=== PATIENT | male | born 1955 | race Caucasian/White ===

== ENCOUNTER → 2016-09-13 | Outpatient (CLI) | payer OTHER, MEDICARE ==
[~2016-09-13] MED LIST: CHOL20009 PO; DICY10CA12 PO; LYR50 PO; MELO7.5T5 PO; MULT-506 PO; OMEP40CA PO; TRAM-10 PO
[2016-09-13 13:17] LABS: ALT/SGPT 66 U/L (12-78); AST/SGOT 44 U/L (15-37); BLOOD UREA NITROGEN 16 mg/dl (7-18); BUN/CREATININE RATIO 18.5 (10-20); CARBON DIOXIDE 26 mmol/L (21-32); CHLORIDE 103 mmol/L (98-107); CHOLESTEROL 169 mg/dl (0-200); CREATININE 0.86 mg/dl (0.60-1.40); GLUCOSE 317 mg/dl (70-99); SODIUM 137 mmol/L (136-145); TRIGLYCERIDES 317 mg/dl (0-150); VERY LOW DENSITY LIPOPROT CALC 63 mg/dl
[2016-09-13 13:21] LABS: ALKALINE PHOSPHATASE 69 U/L (45-117); CHOLESTEROL/HDL RATIO 5.1; HDL CHOLESTEROL 33 mg/dl; LDL CHOLESTEROL CALCULATED 73 mg/dl
[2016-09-13 13:28] LABS: BETA-HYDROXYBUTYRATE 2.05 mg/dL (0.2-2.81)
[2016-09-13 13:30] LABS: CALCIUM 9.5 mg/dl (8.5-10.1)
== END | disposition home or self-care (01) ==
LOC: C.LABPBG 08:13
PROVIDERS: ATTEND Family Medicine
DX: E78.1 Pure hyperglyceridemia (principal); E55.9 Vitamin D deficiency, unspecified; R53.83 Other fatigue

== ENCOUNTER → 2016-10-20 | Outpatient (CLI) | payer OTHER, MEDICARE ==
[2016-10-20 13:56] LABS: ESTIMATED AVERAGE GLUCOSE 280 mg/dl; HA1C FLAG Normal (Normal)
[2016-10-20 15:04] LABS: BLOOD UREA NITROGEN 13 mg/dl (7-18); BUN/CREATININE RATIO 13.9 (10-20); CARBON DIOXIDE 24 mmol/L (21-32); CHLORIDE 104 mmol/L (98-107); CREATININE 0.92 mg/dl (0.60-1.40); GLUCOSE 355 mg/dl (70-99); POTASSIUM 3.8 mmol/L (3.5-5.1); SODIUM 140 mmol/L (136-145)
[2016-10-20 15:20] LABS: BETA-HYDROXYBUTYRATE 6.46 mg/dL (0.2-2.81); CALCIUM 9.1 mg/dl (8.5-10.1)
== END | disposition home or self-care (01) ==
LOC: C.LABPBG 08:27
PROVIDERS: ATTEND Family Medicine
DX: E11.9 Type 2 diabetes mellitus without complications (principal)

== ENCOUNTER → 2017-05-23 | Outpatient (CLI) | payer OTHER, MEDICARE | END | disposition home or self-care (01) | LOC: C.LABPBG 13:49 | PROVIDERS: ATTEND Family Medicine | DX: M25.50 Pain in unspecified joint (principal); E78.1 Pure hyperglyceridemia ==

== ENCOUNTER → 2017-09-26 | Outpatient (CLI) | payer OTHER, MEDICARE ==
[2017-09-26 14:29] LABS: HEMOGLOBIN A1C 6.4 % (4.5-5.6)
[2017-09-26 14:31] LABS: ALBUMIN 3.6 gm/dl (3.4-5.0); ALT/SGPT 46 U/L (12-78); AST/SGOT 25 U/L (15-37); BLOOD UREA NITROGEN 14 mg/dl (7-18); CALCIUM 8.7 mg/dl (8.5-10.1); CARBON DIOXIDE 27 mmol/L (21-32); CHOLESTEROL 162 mg/dl (0-200); CREATININE 0.76 mg/dl (0.60-1.40); GLUCOSE 105 mg/dl (70-99); POTASSIUM 3.6 mmol/L (3.5-5.1); SODIUM 141 mmol/L (136-145)
[2017-09-26 14:41] LABS: ALKALINE PHOSPHATASE 57 U/L (45-117); LDL CHOLESTEROL CALCULATED 83 mg/dl; TOTAL PROTEIN 7.2 gm/dl (6.4-8.2)
== END | disposition home or self-care (01) ==
LOC: C.LABPBG 08:23
PROVIDERS: ATTEND Family Medicine
DX: E11.9 Type 2 diabetes mellitus without complications (principal); E55.9 Vitamin D deficiency, unspecified

== ENCOUNTER 2022-09-02 06:13 | Inpatient (IN) ==
[2022-09-02] MEDS ORDERED: ONDANSETRON INJ 2 MG/ML 2 ML VIAL IV STA (06:54)
[2022-09-02] MEDS ORDERED: HYDROmorphone INJ 0.5 MG/0.5 ML SYR IV STA ×2 (06:54→17:05)
[2022-09-02] MEDS ORDERED: KETOROLAC TROMETHAMINE 15 MG/ML VIAL IV ONE (06:54)
--- NOTE | 2022-09-02 06:56 | Emergency Department Note ---
Impression & Plan Kidney stone ADMIT ED Provider Note HPI: The patient is a 66-year-old gentleman who presents emergency department with a chief complaint of left flank pain. Patient was seen here last night for the same issue, diagnosed with multiple kidney stones with hydronephrosis on the left side. This is where the patient's pain has persisted after his discharge from the emergency room. Patient states he is very uncomfortable, states he is getting sharp pains in his left flank, states he does have nausea. On arrival here to the ED the patient is in moderate distress secondary to left flank pain, noted to be hypertensive at 190/99, otherwise hemodynamically stable and s aturating well on room air. ROS: - Per HPI *Outpatient medications and allergy history reviewed. *Pertinent external medical records reviewed. PE: General: Alert, obese, moderate distress secondary to pain HEENT: Normocephalic, trachea midline Eyes: Extraocular eye movement is intact, no scleral erythema Pulmonary: Clear to auscultation bilaterally, no wheezing Cardio: Regular rate and rhythm GI: Abdomen is soft to palpation : No suprapubic tenderness, there is left flank tenderness to palpation MSK: No evidence of trauma or malformation of the extremities, no edema Skin: No evidence of rash Neuro: Alert, no focal deficits Psychiatric: Cooperative lunchroom monitor: (As interpreted by myself): - An order was placed for continuous cardiac monitoring - Patient was noted to be in sinus rhythm with a rate of 75 EKG: (As interpreted by myself): Rate: 68 Rhythm: Normal sinus rhythm Intervals: Within normal limits ST changes: No ST elevation Time: 0748 Interventions provided in ED: -IV Dilaudid, IV Zofran, IV Toradol Differential Diagnosis: Obstructing kidney stone, pyelonephritis, urinary tract infection, small bowel obstruction, diverticulitis, amongst other pot ential pathologies. Medical Decision Making: Patient presented to the emergency department with recurrent left flank pain after he was discharged over the evening shift following CT imaging that showed evidence of 2 distal ureteral stones in the left ureter. On arrival here to the ED the patient was in moderate distress secondary to pain, states his pain was too severe at home to manage. IV was established, lab work obtained, patient was maintained on monitoring engineer, patient was given IV Toradol, IV Dilaudid, IV Zofran for his symptoms. This did result in improvement in his symptoms. Lab work shows a leukocytosis but no evidence of renal failure, urinalysis does not show infection. On my reassessment patient states he would like to be admitted for pain control as he did not do well overnight after he was originally discharged from the ED. He states he was using tramadol as needed for pain and this did not result in any relief. Case was discussed with on-call urology midlevel provider, Dang, and the services in agreement for routine consultation which I feel is appropriate. [facility] hospitalist service was consulted for admission and patient was placed for admission in stable condition. Consultants: - Urology, Dr. Steward's service - Hospitalist service, Dr. Chavez Disposition discussion held by myself with: Patient Diagnosis: 1. Kidney stones, left-sided, with intractable pain 2. Leukocytosis, nonspecific Disposition: Admission Noman Daniels DO Emergency Medicine Past Med/Surg History Medical History (Updated 09/02/22 @ 08:20 by Noman Daniels DO) Allergic rhinitis Bursitis of left shoulder Deep vein thrombosis hx of, multiple in legs, no blood thinners Degenerative arthritis of knee, bilateral Degenerative disc disease Depression Diabetes mellitus type 2, uncontrolled, without complications Diastolic heart failure Esophageal dysphagia Fibromyalgia GERD (gastroesophageal reflux disease) Hearing deficit History of deep vein thrombophlebitis of lower extremity Hyperhidrosis Hypertriglyceridemia Hypothyroidism IBS (irritable bowel syndrome) Insomnia Lyme disease LILLIAN (obstructive sleep apnea) Osteoarthritis involving multiple joints on both sides of body Rheumatoid arthritis Syncope T2DM (type 2 diabetes mellitus) Trigger thumb, right thumb Venous insufficiency (chronic) (peripheral) Vitamin D deficiency Surgical History History of appendectomy History of cardiac cath "a long time ago", no stents History of colonoscopy History of tooth extraction History of umbilical hernia repair Family History Aunt Family history of diabetes mellitus Sister Family history of diabetes mellitus Hypertension Mother No problems noted. Other No family history of adverse response to anesthesia Social History Smoking Status: Never smoker Second Hand Exposure: No; Hx Alcohol Use: Yes Alcohol type: beer Alcohol Intake Frequency: Monthly or Less Hx Substance Use: No Preferred Language: Dominican Communication Ability: Effective Visual Impairment: Limited Hearing Ability: Normal Skein Yarn Dyer Helper Required: No Beliefs That Will Affect Care: None marital status: Current Living Situation: Spouse and Family Current Living Situation Comment: Lives with and son current occupational status: retired How many Children do You have: 3 How many Children do You have Comment: children mostly local, family able to assist with care as needed. Feels Safe at Home: Yes Childhood Exposure to Second-Hand Smoke: No Diet Comment: similar to keto during the past year weight has: remained stable Dental Care, Regularly: Yes Physical Activity Frequency: Other Physical Activity Frequency Comment: Limited due to physical condition. Seatbelt Use: always Sunscreen Use: No Assistive Devices: BiPap and Denture - Upper Allergies Allergies Allergy/AdvReac Type Severity Reaction Status Date / Time No Known Allergies Allergy Verified 09/01/22 02:23 Home Meds Home Medications Medication Instructions Recorded Confirmed cholecalciferol (vitamin D3) 50 4,000 units PO DAILY 03/06/20 09/01/22 mcg (2,000 unit) tablet (Vitamin D3) lancets 33 gauge (OneTouch Delica 10/08/20 09/01/22 Lancets) guaifenesin 600 mg tablet, 600 mg PO BID PRN Congestion 05/27/21 09/01/22 extended release 12 hr (Mucinex) levocetirizine 5 mg tablet (Xyzal) 5 mg PO QPM 01/31/22 09/01/22 alpha lipoic acid 200 mg tablet 0 mg PO DAILY 09/01/22 09/01/22 glucosamine sulf dipot 2 cap PO DAILY 09/01/22 09/01/22 chlr,msm,chond 550 mg-C 30 mg-jacques 1 mg capsule (Glucosamine Chondroitin) omega-3 fatty acids 1,000 mg 2,000 mg PO DAILY 09/01/22 09/01/22 capsule tramadol 50 mg tablet 50 - 100 mg PO Q6H PRN Pain 09/01/22 09/01/22 turmeric 400 mg capsule 400 mg PO DAILY 09/01/22 09/01/22 Previous Rx's Medication Instructions Recorded fluticasone propionate 50 1 - 2 spray intranasal HS PRN 11/13/18 mcg/actuation nasal Congestion #16 grams spray,suspension (Flonase Allergy Relief) multivitamin 1 tab PO QAM #30 tabs 11/13/18 BiPap Machine #1 ea 03/18/21 Portable Oxygen #1 ea 05/27/21 hydrocolloid dressing 2" X 2" #100 ea 10/21/21 (Aquacel Extra) miscellaneous medical supply #100 ea 10/21/21 montelukast 10 mg tablet 10 mg PO DAILY #90 tabs 12/20/21 (Singulair) metformin 500 mg tablet 500 mg PO BID #180 tabs 12/22/21 BD Ultra-Fine Mini Pen Needle 31 #200 ea 04/12/22 gauge x 3/16" (pen needle, diabetic) meloxicam 15 mg tablet 15 mg PO QAM #30 tabs 05/09/22 blood sugar diagnostic (OneTouch #300 ea 05/10/22 Verio test strips) duloxetine 60 mg capsule,delayed 60 mg PO QAM #90 caps 06/13/22 release furosemide 40 mg tablet 40 mg PO DAILY #90 tabs 06/13/22 sulfasalazine 500 mg 0.5 g PO BID #180 tabs 06/13/22 tablet,delayed release dicyclomine 10 mg capsule 10 mg PO QID PRN Abdominal Pain 07/18/22 #120 caps metformin 500 mg tablet,extended 500 mg PO DAILY #90 tabs 07/18/22 release 24 hr insulin glargine 100 unit/mL (3 40 unit (0.4 mL) subcut BID #15 mL 08/01/22 mL) subcutaneous pen (Lantus Solostar U-100 Insulin) Results & Data (ED) Vital Signs Vital Signs - 24 hr 09/02/22 06:21 09/02/22 07:26 Temperature 36.4 C L Temperature Source Temporal Artery Scan Pulse Rate 71 64 Respiratory Rate 20 Blood Pressure 190/99 H Blood Pressure Mean 129 Pulse Oximetry 94 Oxygen Delivery Method Room Air Sepsis Recent Fever Within 48 Hours No Sepsis New/Unexplained Change in Mental Status N/A Sepsis Action Taken by Nursing No Action Required Laboratory Data 09/02/22 07:00 09/02/22 07:00 Lab Results 09/02/22 09/02/22 09/02/22 Range/Units 07:00 07:00 07:00 WBC 13.67 H (4.8-10.8) K/ul RBC 5.33 (4.70-6.10) M/uL Hgb 15.8 (14.0-18.0) g/dl Hct 45.5 (42.0-52.0) % MCV 85.4 (80.0-100.0) fL MCH 29.6 (25.0-34.0) pg MCHC 34.7 (32.0-36.0) g/dL RDW Std Deviation 41.6 (36.4-46.3) fL RDW Coeff of Andres 13.4 (11.5-14.5) % Plt Count 163 (130-400) K/uL MPV 9.5 (9.4-12.4) fL Immature Gran % (Auto) 0.4 % Neut % (Auto) 79.5 % Lymph % (Auto) 12.4 % [place] % (Auto) 7.4 % Eos % (Auto) 0.2 % Baso % (Auto) 0.1 % Neut # (Auto) 10.85 H (1.40-6.50) K/uL Lymph # (Auto) 1.70 (1.2-3.4) K/uL [place] # (Auto) 1.01 H (0.11-0.59) K/uL Eos # (Auto) 0.03 (0-0.50) K/uL Baso # (Auto) 0.02 (0-0.2) K/uL Immature Gran # (Auto) 0.06 (0.01-0.20) K/uL Sodium 136 (136-145) mmol/L Potassium 3.9 (3.5-5.1) mmol/L Chloride 103 (98-107) mmol/L Carbon Dioxide 25 (21-32) mmol/L Anion Gap 8 (3-11) BUN 12 (6-23) mg/dl Creatinine 1.15 (0.6-1.4) mg/dl Est Cr Clr Drug Dosing 91.3 ml/min Est GFR ( Amer) 76.4 ml/min Est GFR (Non-Af Amer) 65.9 ml/min BUN/Creatinine Ratio 10.4 (10-20) Glucose 176 H (70-99(Fasting)) mg/dl Calcium 9.4 (8.6-10.3) mg/dl Total Bilirubin 0.6 (0.2-1.0) mg/dl AST 22 (13-39) U/L ALT 23 (7-52) U/L Alkaline Phosphatase 49 (34-104) U/L Total Protein 7.3 (6.0-8.3) gm/dl Albumin 4.0 (3.4-5.0) gm/dl Globulin 3.3 (2.5-4.0) gm/dl Albumin/Globulin Ratio 1.2 (0.9-2) Lipase 19 (11-82) U/L Urine Color Yellow Urine Appearance Clear (Clear) Urine pH 5.5 (4.5-7.5) Ur Specific [place] 1.009 (1.000-1.030) Urine Protein Negative (Negative) Urine Glucose (UA) Negative (Negative) Urine Ketones Trace H (Negative) Urine Blood Negative (Negative) Urine Nitrite Negative (Negative) Urine Bilirubin Negative (Negative) Urine Urobilinogen Negative (Negative) Ur Leukocyte Esterase Negative (Negative) SARS-CoV-2, RNA, NAAT (NEGATIVE) 09/02/22 Range/Units 07:10 WBC (4.8-10.8) K/ul RBC (4.70-6.10) M/uL Hgb (14.0-18.0) g/dl Hct (42.0-52.0) % MCV (80.0-100.0) fL MCH (25.0-34.0) pg MCHC (32.0-36.0) g/dL RDW Std Deviation (36.4-46.3) fL RDW Coeff of Andres (11.5-14.5) % Plt Count (130-400) K/uL MPV (9.4-12.4) fL Immature Gran % (Auto) % Neut % (Auto) % Lymph % (Auto) % [place] % (Auto) % Eos % (Auto) % Baso % (Auto) % Neut # (Auto) (1.40-6.50) K/uL Lymph # (Auto) (1.2-3.4) K/uL [place] # (Auto) (0.11-0.59) K/uL Eos # (Auto) (0-0.50) K/uL Baso # (Auto) (0-0.2) K/uL Immature Gran # (Auto) (0.01-0.20) K/uL Sodium (136-145) mmol/L Potassium (3.5-5.1) mmol/L Chloride (98-107) mmol/L Carbon Dioxide (21-32) mmol/L Anion Gap (3-11) BUN (6-23) mg/dl Creatinine (0.6-1.4) mg/dl Est Cr Clr Drug Dosing ml/min Est GFR ( Amer) ml/min Est GFR (Non-Af Amer) ml/min BUN/Creatinine Ratio (10-20) Glucose (70-99(Fasting)) mg/dl Calcium (8.6-10.3) mg/dl Total Bilirubin (0.2-1.0) mg/dl AST (13-39) U/L ALT (7-52) U/L Alkaline Phosphatase (34-104) U/L Total Protein (6.0-8.3) gm/dl Albumin (3.4-5.0) gm/dl Globulin (2.5-4.0) gm/dl Albumin/Globulin Ratio (0.9-2) Lipase (11-82) U/L Urine Color Urine Appearance (Clear) Urine pH (4.5-7.5) Ur Specific [place] (1.000-1.030) Urine Protein (Negative) Urine Glucose (UA) (Negative) Urine Ketones (Negative) Urine Blood (Negative) Urine Nitrite (Negative) Urine Bilirubin (Negative) Urine Urobilinogen (Negative) Ur Leukocyte Esterase (Negative) SARS-CoV-2, RNA, NAAT NEGATIVE (NEGATIVE) Administered Medications Discontinued Medications Hydromorphone HCl (Hydromorphone Inj 0.5 Mg/0.5 Ml Syr) 0.5 mg IV NOW STA Stop: 09/02/22 06:55 Last Admin: 09/02/22 07:07 Dose: 0.5 mg Documented By: OL Ketorolac Tromethamine (Ketorolac Tromethamine 15 Mg/Ml Vial) 15 mg IV NOW ONE Stop: 09/02/22 06:55 Last Admin: 09/02/22 07:07 Dose: 15 mg Documented By: OL Ondansetron HCl (Ondansetron Inj 2 Mg/Ml 2 Ml Vial) 4 mg IV NOW STA Stop: 09/02/22 06:55 Last Admin: 09/02/22 07:07 Dose: 4 mg Documented By: MIKHAIL Discharge Plan Visit Data Chief Complaint: Kidney Stone Stated Complaint: KIDNEY STONE - PAIN ED Provider: Noman Daniels Discharge Problem: Kidney stone Forms Stand Alone Forms: My [facility] Prescriptions Prescriptions: No Action (DME) BiPap Machine Misc See Rx Instructions .Route Qty: 1 0RF Rx Instructions: BiPAP 14/6, biflex2; oxygen 2L/min (DME) miscellaneous medical supply Pad See Rx Instructions .Route Qty: 100 1RF Rx Instructions: As directed Cosmopor sterile adhesive dressing (DME) Aquacel Extra 2 X 2 " bandage See Rx Instructions .Route Qty: 100 1RF Rx Instructions: As directed montelukast [Singulair] 10 mg tablet 10 mg PO DAILY Qty: 90 3RF metformin 500 mg tablet 500 mg PO BID Qty: 180 5RF Hold Instructions: Home Medication placed on hold at Doctor's office Rx Instructions: ON HOLD (DME) pen needle, diabetic [BD Ultra-Fine Mini Pen Needle] 31 gauge x 3/16" needle See Dose Instructions .ROUTE .MEDSUPPLY Qty: 200 3RF Dose Instruction: As directed Rx Instructions: inject with insulin 2 times daily meloxicam 15 mg tablet 15 mg PO QAM Qty: 30 5RF (DME) OneTouch Verio test strips Strip See Rx Instructions .ROUTE .MEDSUPPLY Qty: 300 1RF Rx Instructions: test blood sugar TID insulin glargine [Lantus Solostar U-100 Insulin] 100 unit/mL (3 mL) insulin pen 40 unit subcut BID Qty: 15 5RF fluticasone propionate [Flonase Allergy Relief] 50 mcg/actuation spray,suspension 1 - 2 spray INTRANASAL HS PRN (Reason: Congestion) Qty: 16 5RF multivitamin tablet 1 tab PO QAM Qty: 30 5RF guaifenesin [Mucinex] 600 mg tablet extended release 12hr 600 mg PO BID PRN (Reason: Congestion) (DME) Portable Oxygen Misc See Rx Instructions .ROUTE .MEDSUPPLY Qty: 1 0RF Rx Instructions: 2L NC w/ activity cholecalciferol (vitamin D3) [Vitamin D3] 50 mcg (2,000 unit) tablet 4,000 units PO DAILY Rx Instructions: gummies sulfasalazine 500 mg tablet,delayed release (DR/EC) 0.5 g PO BID Qty: 180 1RF duloxetine 60 mg capsule,delayed release(DR/EC) 60 mg PO QAM Qty: 90 1RF furosemide 40 mg tablet 40 mg PO DAILY Qty: 90 2RF (DME) lancets [OneTouch Delica Lancets] 33 gauge misc See Rx Instructions .ROUTE .MEDSUPPLY Dose Instruction: As directed Rx Instructions: Testing three times daily. levocetirizine [Xyzal] 5 mg tablet 5 mg PO QPM dicyclomine 10 mg capsule 10 mg PO QID PRN (Reason: Abdominal Pain) Qty: 120 0RF metformin 500 mg tablet extended release 24 hr 500 mg PO DAILY Qty: 90 1RF omega-3 fatty acids 1,000 mg Capsule 2,000 mg PO DAILY alpha lipoic acid 200 mg Tablet 0 mg PO DAILY Rx Instructions: UNSURE OF STRENGTH turmeric 400 mg Capsule 400 mg PO DAILY Glucosamine Chondroitin 550-30-1 mg Capsule 2 cap PO DAILY tramadol 50 mg tablet 50 - 100 mg PO Q6H PRN (Reason: Pain) Referrals Referrals: Jaymie Rutherford DO [Primary Care Provider] -
[2022-09-02 07:20] LABS: Appearance Urine Clear (Clear); Bilirubin Urine Negative (Negative); Blood Urine Negative (Negative); Color Urine Yellow; Glucose Urine UA Negative (Negative); Ketones Urine Trace (Negative); Leukocyte Esterase Urine Negative (Negative); Nitrite Urine Negative (Negative); Protein Urine Negative (Negative); Specific Gravity Urine 1.009 (1.000-1.030); Urobilinogen Urine Negative (Negative); pH Urine 5.5 (4.5-7.5)
[2022-09-02 07:23] LABS: Basophils # (auto) 0.02 K/uL (0-0.2); Basophils % (auto) 0.1 %; Eosinophils # (auto) 0.03 K/uL (0-0.50); Eosinophils % (auto) 0.2 %; Hematocrit (blood only) 45.5 % (42.0-52.0); Hemoglobin 15.8 g/dl (14.0-18.0); Immature Granulocytes # (auto) 0.06 K/uL (0.01-0.20); Immature Granulocytes % (auto) 0.4 %; Lymphocytes % (auto) 12.4 %; Mean Corpuscular Hemoglobin 29.6 pg (25.0-34.0); Mean Corpuscular Hgb Conc 34.7 g/dL (32.0-36.0); Mean Corpuscular Volume 85.4 fL (80.0-100.0); Mean Platelet Volume 9.5 fL (9.4-12.4); Monocytes # (auto) 1.01 K/uL (0.11-0.59); Monocytes % (auto) 7.4 %; Neutrophils # (auto) 10.85 K/uL (1.40-6.50); Neutrophils % (auto) 79.5 %; Platelet Count 163 K/uL (130-400); RDW Coefficient of Variation 13.4 % (11.5-14.5); RDW Standard Deviation 41.6 fL (36.4-46.3); Red Blood Count 5.33 M/uL (4.70-6.10); White Blood Count 13.67 K/ul (4.8-10.8)
[2022-09-02 07:29] LABS: Albumin Globulin Ratio 1.2 (0.9-2); BUN Creatinine Ratio 10.4 (10-20); Bilirubin,Total 0.6 mg/dl (0.2-1.0); Calcium 9.4 mg/dl (8.6-10.3); Creatinine Clr Calc Pharmacy 91.3 ml/min; Est GFR (African American) 76.4 ml/min; Est GFR (Non-African American) 65.9 ml/min; Globulin 3.3 gm/dl (2.5-4.0); Potassium 3.9 mmol/L (3.5-5.1); Total Protein 7.3 gm/dl (6.0-8.3)
[2022-09-02] MEDS ORDERED: LANTUS PER UNIT CHARGE SQ STA (11:27)
--- NOTE | 2022-09-02 11:52 | History & Physical Report ---
Date of Service September 02, 2022 Assessment & Plan (1) Kidney stone: Plan: 66 yo M with 2 small kidney stones in L distal ureter with associated mild hydroureter and hydronephrosis Acute/unstable - Admit to med/surg unit - Clear liquid diet for now and advance to DMT2 as tolerated - Reviewed CBC and CMP - no evidence of renal failure - IVF with NSS @ 100 ml/hr x 1 liter then stop - Strain all urine - Continue Tramadol which he takes for chronic pain at home and add Dilaudid 0.5mg IV q3 for breakthrough pain - UA does not appear infected, no need for antibiotics at present - Urology has been consulted, appreciate assistance (2) Leukocytosis: Plan: Acute/unstable - Reviewed CBC, wbc count 13 with left shift - Etiology ?reactive, afebrile - Improved from 17 to 13 after 1L of IVF - Hydrate and trend with CBC in AM (3) T2DM (type 2 diabetes mellitus): Plan: Chronic/stable - Resume Lantus 40u BID - Add coverage with meals and accuchecks AC and HS - A1c ordered - Continue Metformin (4) Diastolic heart failure: Plan: Chronic/stable - Currently takes Lasix 40mg daily prn swelling - Presently appears compensated - Monitor for s/sx of volume overload (5) LILLIAN (obstructive sleep apnea): Plan: Chronic/stable - uses bipap at HS and O2 with activity - May use bipap from home - Utilize O2 with activity PRN (6) Rheumatoid arthritis: Plan: H/o RA and OA Chronic/stable - Continue Sulfalazine, Tramadol, Meloxicam Plan Given h/o DVT, high risk, utilize Lovenox for dvt ppx. Above plan of care has been d/w Dr. Will who will also see and evaluate this patient. Further orders will be implemented as warranted. History of Present Illness Chief Complaint: flank pain Primary Care Provider: Jaymie Rutherford DO Alonso Lynn is a 66 yo M with a pmhx of DMT2, RA, fibromyalgia, and LILLIAN who presents to the ER for the second time in 24 hours c/o left sided flank pain. Patient reports that he first noted pain 2 nights ago around 9pm. He notes that yesterday the pain was intolerable and he was experiencing nausea and dry heaves. He denies vomiting or fever/chills. Denies dysuria, hematuria, abd pain, or frequency. He has no prior history of kidney stones. He does admit to drinking a lot of green tea. He initially presented to the ER around 2am this morning, was noted on CT to have 2 small stones in the distal left ureter with hydroureter and hydronephrosis. He was treated with pain medications and it was felt that the patient would be able to pass the stones on his own at home and was discharged. Unfortunately, the patient returned with a few hours to the ER due to intractable dry heaves and persistent pain. His initial labwork early this AM revealed a WBC count of 17.13 with left shift and no other significant laboratory abnormalities. UA looked unremarkable. Repeat labwork upon his return notes a slight decrease in his wbc to 13 and repeat UA again looks unremarkable. He was medicated with a dose of Toradol, Dilaudid, and Zofran and urology has been consulted. He has been referred to the hospitalists service for treatment. Allergies Allergy/AdvReac Type Severity Reaction Status Date / Time No Known Allergies Allergy Verified 09/01/22 02:23 Home Medications Medication Instructions Recorded Confirmed Type fluticasone propionate 50 1 - 2 spray intranasal HS PRN 11/13/18 09/02/22 Rx mcg/actuation nasal Congestion #16 grams spray,suspension (Flonase Allergy Relief) multivitamin 1 tab PO QAM #30 tabs 11/13/18 09/02/22 Rx cholecalciferol (vitamin D3) 50 4,000 units PO DAILY 03/06/20 09/02/22 History mcg (2,000 unit) tablet (Vitamin D3) lancets 33 gauge (OneTouch Delica 10/08/20 09/01/22 History Lancets) BiPap Machine #1 ea 03/18/21 09/01/22 Rx Portable Oxygen #1 ea 05/27/21 09/01/22 Rx guaifenesin 600 mg tablet, 600 mg PO BID PRN Congestion 05/27/21 09/02/22 History extended release 12 hr (Mucinex) hydrocolloid dressing 2" X 2" #100 ea 10/21/21 09/01/22 Rx (Aquacel Extra) miscellaneous medical supply #100 ea 10/21/21 09/01/22 Rx montelukast 10 mg tablet 10 mg PO DAILY #90 tabs 12/20/21 09/02/22 Rx (Singulair) metformin 500 mg tablet 500 mg PO BID #180 tabs 12/22/21 09/01/22 Rx levocetirizine 5 mg tablet (Xyzal) 5 mg PO QPM 01/31/22 09/02/22 History BD Ultra-Fine Mini Pen Needle 31 #200 ea 04/12/22 09/01/22 Rx gauge x 3/16" (pen needle, diabetic) meloxicam 15 mg tablet 15 mg PO QAM #30 tabs 05/09/22 09/02/22 Rx blood sugar diagnostic (OneTouch #300 ea 05/10/22 09/01/22 Rx Verio test strips) duloxetine 60 mg capsule,delayed 60 mg PO QAM #90 caps 06/13/22 09/02/22 Rx release sulfasalazine 500 mg 0.5 g PO BID #180 tabs 06/13/22 09/02/22 Rx tablet,delayed release dicyclomine 10 mg capsule 10 mg PO QID PRN Abdominal Pain 07/18/22 09/02/22 Rx #120 caps metformin 500 mg tablet,extended 500 mg PO DAILY #90 tabs 07/18/22 09/02/22 Rx release 24 hr insulin glargine 100 unit/mL (3 40 unit (0.4 mL) subcut BID #15 mL 08/01/22 09/02/22 Rx mL) subcutaneous pen (Lantus Solostar U-100 Insulin) alpha lipoic acid 200 mg tablet 0 mg PO DAILY 09/01/22 09/02/22 History glucosamine sulf dipot 2 cap PO DAILY 09/01/22 09/02/22 History chlr,msm,chond 550 mg-C 30 mg-jacques 1 mg capsule (Glucosamine Chondroitin) omega-3 fatty acids 1,000 mg 2,000 mg PO DAILY 09/01/22 09/02/22 History capsule turmeric 400 mg capsule 400 mg PO DAILY 09/01/22 09/02/22 History acetaminophen 650 mg 650 mg PO Q8H PRN Pain 09/02/22 09/02/22 History tablet,extended release furosemide 40 mg tablet 40 mg PO DAILY PRN swelling 09/02/22 09/02/22 History tramadol 50 mg tablet 50 - 100 mg PO Q6H PRN Pain #90 09/02/22 Rx tabs Past Med/Surg History Medical History Allergic rhinitis Bursitis of left shoulder Deep vein thrombosis hx of, multiple in legs, no blood thinners Degenerative arthritis of knee, bilateral Degenerative disc disease Depression Diabetes mellitus type 2, uncontrolled, without complications Diastolic heart failure Esophageal dysphagia Fibromyalgia GERD (gastroesophageal reflux disease) Hearing deficit History of deep vein thrombophlebitis of lower extremity Hyperhidrosis Hypertriglyceridemia Hypothyroidism IBS (irritable bowel syndrome) Insomnia Lyme disease LILLIAN (obstructive sleep apnea) Osteoarthritis involving multiple joints on both sides of body Rheumatoid arthritis Syncope T2DM (type 2 diabetes mellitus) Trigger thumb, right thumb Venous insufficiency (chronic) (peripheral) Vitamin D deficiency Surgical History History of appendectomy History of cardiac cath "a long time ago", no stents History of colonoscopy History of tooth extraction History of umbilical hernia repair Family History Aunt Family history of diabetes mellitus Sister Family history of diabetes mellitus Hypertension Mother No problems noted. Other No family history of adverse response to anesthesia Social History Smoking Status: Never smoker Second Hand Exposure: No; Hx Alcohol Use: Yes Alcohol type: beer Alcohol Intake Frequency: Monthly or Less Hx Substance Use: No Preferred Language: Faroese Communication Ability: Effective Visual Impairment: Limited Hearing Ability: Normal Environmental Engineer Required: No Beliefs That Will Affect Care: None marital status: Current Living Situation: Spouse and Family Current Living Situation Comment: Lives with and son current occupational status: retired How many Children do You have: 3 How many Children do You have Comment: children mostly local, family able to assist with care as needed. Feels Safe at Home: Yes Childhood Exposure to Second-Hand Smoke: No Diet Comment: similar to keto during the past year weight has: remained stable Dental Care, Regularly: Yes Physical Activity Frequency: Other Physical Activity Frequency Comment: Limited due to physical condition. Seatbelt Use: always Sunscreen Use: No Assistive Devices: BiPap and Denture - Upper Physical Exam Physical Exam: GENERAL: 66 yo morbidly obese WM. NAD. LUNGS: Clear to auscultation bilaterally w/o w/r/r CARDIOVASCULAR: Regular rate and rhythm. ABDOMEN: Soft, non-tender and non-distended. BS normoactive x 4 quad. : Negative CVA tenderness. EXTREMITIES: 1+ b/l LE edema. Non-tender. Peripheral pulses +2/4. Results & Data Results & Data Vital Signs (Past 12 Hours) Vital Signs Temp Pulse Pulse Resp BP BP Pulse Ox 09/02/22 11:02 61 18 151/95 H 92 09/02/22 08:48 67 18 151/62 H 93 09/02/22 08:19 93 09/02/22 07:26 64 09/02/22 06:21 36.4 C L 71 20 190/99 H 94 O2 Del Method O2 Flow Rate 09/02/22 11:02 Nasal Cannula 2 09/02/22 08:48 Nasal Cannula 2 09/02/22 08:19 Nasal Cannula 2 09/02/22 07:26 09/02/22 06:21 Room Air Laboratory Results 09/02/22 07:00 09/02/22 07:[address] Abdomen and Pelvis Without Intravenous Contrast CLINICAL HISTORY: Reason for exam: left flank pain. TECHNIQUE: Axial computed tomography images of the abdomen and pelvis without intravenous contrast. CTDI is 40.69 mGy and DLP is 2252.42 mGy-cm. Automated exposure control was utilized for the study. A dose lowering technique was utilized adhering to the principles of ALARA. COMPARISON: None. FINDINGS: Lung bases: Trace bilateral lower lobe atelectasis. Heart: Borderline cardiomegaly. ABDOMEN: Liver: Diffuse fatty liver. Gallbladder and bile ducts: Slightly over distended gallbladder otherwise unremarkable gallbladder and biliary system. No calcified stones. No ductal dilation. Pancreas: Unremarkable. No ductal dilation. Spleen: Unremarkable. No splenomegaly. Adrenals: Unremarkable. No mass. Kidneys and ureters: Small stone in the lower pole of the left kidney measuring 2.7 mm. Mild left hydronephrosis with perinephric stranding. Left periatrial stranding with mild hydroureter with 2 distal ureteral stones demonstrated, one seen at the left UV junction measuring 4 mm in second seen 2 cm above the UV junction and measuring 3.4 mm. Right upper renal pole low-attenuation structure measuring 1.5 cm with slight increased attenuation, likely hemorrhagic cyst. Right upper renal pole stone measuring 1.3 mm. Otherwise unremarkable right kidney. Stomach and bowel: The descending colon is decompressed. There is mild scattered diverticulosis with no signs of diverticulitis. No obstruction. PELVIS: Appendix: No findings to suggest acute appendicitis. Bladder: Unremarkable. No stones. Reproductive: Unremarkable as visualized. ABDOMEN and PELVIS: Intraperitoneal space: Unremarkable. No free air. No significant fluid collection. Bones/joints: Degenerative disease of the spine, more severe through the lower lumbar spine and lumbosacral junction. No acute fracture. No dislocation. Soft tissues: Unremarkable. Vasculature: Unremarkable. No abdominal aortic aneurysm. Lymph nodes: Unremarkable. No enlarged lymph nodes. IMPRESSION: 1. Right mid upper renal pole cystic structure, likely hemorrhagic cyst. If indicated, this can be further followed up and confirmed with ultrasound of the right kidney to document simple renal cyst. 2. Mild left hydronephrosis and hydroureter with 2 small distal ureteral stones measuring 3.4 and 4 mm in size. Bilateral intrarenal stones. 3. Mild diverticulosis with no signs of diverticulitis. No bowel obstruction. Electronically signed by: Estrellita Vo MD 09/01/22 03:27 AM Dictated:09/01/22326 Transcribed: 09/01/22326 Supervising Physician Co-Signing Physician Notes I personally examined the patient and verified all sharma points of history and exam, discussed case, and agree with decision making with Doc Banegas PAC Having a bit worsening of pain whenever I see him. Also notes that his appetite/nausea has been bad enough he has not had much p.o. intake today. Vitals noted, in general he appears mildly uncomfortable. Breathing unlabored no accessory muscle use good effort. Skin shows no rashes no pallor or icterus. Neuro without focal deficits. Ureterolithiasiswould like a trial of spontaneous passage. IV fluids, pain control, nausea control. Urology following along as well. Otherwise as above PG Care Time/CCT Total # of Minutes Spent Total Time Spent with Patient: Total time spent is greater than 50% in coordination of care (as documented) at patient's floor/unit and/or counseling patient: Coding Level of Care Code 02626 INT INP/OBS CARE 3/75MIN Diagnoses Kidney stone N20.0 Leukocytosis D72.829 T2DM (type 2 diabetes mellitus) E11.9 Diastolic heart failure I50.30 LILLIAN (obstructive sleep apnea) G47.33 Rheumatoid arthritis M06.9
--- NOTE | 2022-09-02 12:01 | Urology Consultation ---
Date of Consultation September 02, 2022 Assessment & Plan (1) Hydronephrosis with renal and ureteral calculus obstruction: 66 yo M admitted after multiple presentations to the emergency department for intractable left flank/abdominal pain secondary to 2 left distal ureteral calculi. CT A/P notable for 2 distal ureteral stones measuring 3.4 and 4 mm with mild left hydroureteronephrosis. Patient is afebrile and hemodynamically stable. Labs reviewedcreatinine 1.15, WBC 13.67. UA not suggestive of infection. Pain is currently controlled. We discussed options for stone management including observation/trial of passage versus surgical intervention with left ureteral stent placement while inpatient. Discussed options for outpatient management including trial of passage, ESWL versus ureteroscopy, laser lithotripsy and stent placement. He would like to proceed with trial of passage for now. No surgical intervention planned today. Okay to resume diet. Make NPO at [place] to reassess. Recommend hydration, tamsulosin. Strain all urine. Continue supportive care and pain management per hospital medicine service. will follow. History of Present Illness History of Present Illness This is a 66-year-old male with past medical history of morbid obesity, dyslipidemia, type 2 diabetes, hypothyroidism, LILLIAN and metabolic syndrome who presented to the emergency department on 09/01/2022 with acute onset of left flank/abdominal pain. He had a CT A/P notable for 2 distal ureteral stones measuring 3.4 and 4 mm with mild left hydroureteronephrosis. His pain improved in ED and he was discharged to home for trial of passage. Unfortunately he returned to the emergency department a few hours later due to recurrence of significant left flank/abdominal pain. On arrival, he was afebrile, hypertensive but otherwise hemodynamically stable. Lab work independently reviewed and WBC 13.67, hemoglobin 15.8, creatinine 1.15. Urinalysis showed trace ketones, otherwise negative. He was treated with hydromorphone, ketorolac and ondansetron in ED. He has been admitted to the hospital medicine service urology is consulted for left distal ureteral stones. Patient seen in the emergency department. at bedside. Patient is awake and resting in litter, no apparent distress. He reports no pain at present. No nausea or vomiting. No fever or chills. He is voiding spontaneously without difficulty. No dysuria or hematuria. No prior history of kidney stones. No additional concerns today. Allergies Allergy/AdvReac Type Severity Reaction Status Date / Time No Known Allergies Allergy Verified 09/01/22 02:23 Home Medications Medication Instructions Recorded Confirmed Type fluticasone propionate 50 1 - 2 spray intranasal HS PRN 11/13/18 09/02/22 Rx mcg/actuation nasal Congestion #16 grams spray,suspension (Flonase Allergy Relief) multivitamin 1 tab PO QAM #30 tabs 11/13/18 09/02/22 Rx cholecalciferol (vitamin D3) 50 4,000 units PO DAILY 03/06/20 09/02/22 History mcg (2,000 unit) tablet (Vitamin D3) lancets 33 gauge (OneTouch Delica 10/08/20 09/01/22 History Lancets) BiPap Machine #1 ea 03/18/21 09/01/22 Rx Portable Oxygen #1 ea 05/27/21 09/01/22 Rx guaifenesin 600 mg tablet, 600 mg PO BID PRN Congestion 05/27/21 09/02/22 History extended release 12 hr (Mucinex) hydrocolloid dressing 2" X 2" #100 ea 10/21/21 09/01/22 Rx (Aquacel Extra) miscellaneous medical supply #100 ea 10/21/21 09/01/22 Rx montelukast 10 mg tablet 10 mg PO DAILY #90 tabs 12/20/21 09/02/22 Rx (Singulair) metformin 500 mg tablet 500 mg PO BID #180 tabs 12/22/21 09/01/22 Rx levocetirizine 5 mg tablet (Xyzal) 5 mg PO QPM 01/31/22 09/02/22 History BD Ultra-Fine Mini Pen Needle 31 #200 ea 04/12/22 09/01/22 Rx gauge x 3/16" (pen needle, diabetic) meloxicam 15 mg tablet 15 mg PO QAM #30 tabs 05/09/22 09/02/22 Rx blood sugar diagnostic (OneTouch #300 ea 05/10/22 09/01/22 Rx Verio test strips) duloxetine 60 mg capsule,delayed 60 mg PO QAM #90 caps 06/13/22 09/02/22 Rx release sulfasalazine 500 mg 0.5 g PO BID #180 tabs 06/13/22 09/02/22 Rx tablet,delayed release dicyclomine 10 mg capsule 10 mg PO QID PRN Abdominal Pain 07/18/22 09/02/22 Rx #120 caps metformin 500 mg tablet,extended 500 mg PO DAILY #90 tabs 07/18/22 09/02/22 Rx release 24 hr insulin glargine 100 unit/mL (3 40 unit (0.4 mL) subcut BID #15 mL 08/01/22 09/02/22 Rx mL) subcutaneous pen (Lantus Solostar U-100 Insulin) alpha lipoic acid 200 mg tablet 0 mg PO DAILY 09/01/22 09/02/22 History glucosamine sulf dipot 2 cap PO DAILY 09/01/22 09/02/22 History chlr,msm,chond 550 mg-C 30 mg-jacques 1 mg capsule (Glucosamine Chondroitin) omega-3 fatty acids 1,000 mg 2,000 mg PO DAILY 09/01/22 09/02/22 History capsule tramadol 50 mg tablet 50 - 100 mg PO Q6H PRN Pain 09/01/22 09/02/22 History turmeric 400 mg capsule 400 mg PO DAILY 09/01/22 09/02/22 History acetaminophen 650 mg 650 mg PO Q8H PRN Pain 09/02/22 09/02/22 History tablet,extended release furosemide 40 mg tablet 40 mg PO DAILY PRN swelling 09/02/22 09/02/22 History Patient History Medical History Allergic rhinitis Bursitis of left shoulder Deep vein thrombosis hx of, multiple in legs, no blood thinners Degenerative arthritis of knee, bilateral Degenerative disc disease Depression Diabetes mellitus type 2, uncontrolled, without complications Diastolic heart failure Esophageal dysphagia Fibromyalgia GERD (gastroesophageal reflux disease) Hearing deficit History of deep vein thrombophlebitis of lower extremity Hyperhidrosis Hypertriglyceridemia Hypothyroidism IBS (irritable bowel syndrome) Insomnia Lyme disease LILLIAN (obstructive sleep apnea) Osteoarthritis involving multiple joints on both sides of body Rheumatoid arthritis Syncope T2DM (type 2 diabetes mellitus) Trigger thumb, right thumb Venous insufficiency (chronic) (peripheral) Vitamin D deficiency Surgical History History of appendectomy History of cardiac cath "a long time ago", no stents History of colonoscopy History of tooth extraction History of umbilical hernia repair Family History Aunt Family history of diabetes mellitus Sister Family history of diabetes mellitus Hypertension Mother No problems noted. 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 Feels Safe at Home: Yes Childhood Exposure to Second-Hand Smoke: No Diet Comment: similar to keto during the past year weight has: remained stable Dental Care, Regularly: Yes Physical Activity Frequency: Other Physical Activity Frequency Comment: Limited due to physical condition. Seatbelt Use: always Sunscreen Use: No Assistive Devices: BiPap and Denture - Upper Review of Systems Review of Systems: All systems reviewed & are unremarkable except as noted in HPI & below Physical Exam Constitutional: + obese; no acute distress and not ill appearing Eyes: no scleral abnormality Neck: normal visual inspection Respiratory: normal respiratory effort; no respiratory distress and no labored breathing Cardiovascular: Rate/Rhythm: regular rate Extremities: + edema (mild bilateral lower extremities) Gastrointestinal (Abdomen): Inspection/Auscultation: abdomen normal to inspection; abdomen not distended Percussion/Palpation: abdomen soft; abdomen nontender and no guarding Skin: stasis discoloration b/l lower extremities Neurologic: moves all extremities and awake Psychiatric: Orientation: alert and oriented x 3 Genitourinary: no CVA tenderness Results & Data Vital Signs (Past 12 Hours) Vital Signs Temp Pulse Pulse Resp BP BP Pulse Ox 09/02/22 11:02 61 18 151/95 H 92 09/02/22 08:48 67 18 151/62 H 93 09/02/22 08:19 93 09/02/22 07:26 64 09/02/22 06:21 36.4 C L 71 20 190/99 H 94 O2 Del Method O2 Flow Rate 09/02/22 11:02 Nasal Cannula 2 09/02/22 08:48 Nasal Cannula 2 09/02/22 08:19 Nasal Cannula 2 09/02/22 07:26 09/02/22 06:21 Room Air PG Care Time/CCT Total # of Minutes Spent Total Time Spent with Patient: Total time spent is greater than 50% in coordination of care (as documented) at patient's floor/unit and/or counseling patient: Coding Level of Care Code 82876 INT INP/OBS CARE 2/55MIN Diagnoses Hydronephrosis with renal and ureteral calculus obstruction N13.2 Time Spent (min) 56
[2022-09-02] MEDS ORDERED: SODIUM CHLORIDE 0.9% 1000ML 1,000 ML IV SCH (12:37)
[2022-09-02] MEDS ORDERED: CARBOHYDRATES FOR HYPOGLYCEMIA PO PRN (12:37)
[2022-09-02] MEDS ORDERED: MAGNESIUM HYDROXIDE SUSP 30 ML UDC PO PRN (12:37)
[2022-09-02] MEDS ORDERED: GLUCOSE 10 TAB/TUBE PO PRN (12:37)
[2022-09-02] MEDS ORDERED: ALUMINUM/MAGNESIUM SUSP 30 ML UDC PO PRN (12:37)
[2022-09-02] MEDS ORDERED: FUROSEMIDE 40 MG TAB PO PRN (12:37)
[2022-09-02] MEDS ORDERED: DEXTROSE 50% 50 ML SYRINGE IV PRN (12:37)
[2022-09-02] MEDS ORDERED: POLYETHYLENE (MIRALAX) 17 GM PACK PO PRN (12:37)
[2022-09-02] MEDS ORDERED: GLUCAGON FOR INJ 1 MG VIAL SQ PRN (12:37)
[2022-09-02] MEDS ORDERED: GLUCOSE 40% GEL 15 GM TUBE PO PRN (12:37)
[2022-09-02] MEDS ORDERED: ONDANSETRON INJ 2 MG/ML 2 ML VIAL ONE (12:44)
[2022-09-02] MEDS: ONDANSETRON INJ 2 MG/ML 2 ML VIAL IV PRN (12:46)
[2022-09-02] MEDS: HYDROmorphone INJ 0.5 MG/0.5 ML SYR IV PRN (13:18)
[2022-09-02] MEDS: MELOXICAM 7.5 MG TAB PO SCH (14:05)
[2022-09-02] MEDS: sulfaSALAzine 500 MG TABEC PO SCH ×2 (14:06→20:51)
[2022-09-02] MEDS: INSULIN ASPART PER UNIT CHARGE SC SCH ×3 (14:08→20:51)
[2022-09-02] MEDS: traMADol HCL 50 MG TABLET PO PRN ×2 (15:25→23:03)
[2022-09-02] MEDS: ACETAMINOPHEN 325 MG TAB PO PRN ×2 (15:25→23:04)
[2022-09-02] MEDS ORDERED: NYSTATIN POWDER 15GM BTL EXT PRN (16:27)
[2022-09-02] MEDS: PROCHLORPERAZINE 10 MG in SYRINGE 8 ML IV PRN (17:39)
[2022-09-02] MEDS: metFORMIN HCL ER 500 MG TABCR PO SCH (17:44)
[2022-09-02] MEDS: LANTUS PER UNIT CHARGE SQ SCH (20:51)
[2022-09-02] MEDS: NYSTATIN POWDER 15GM BTL EXT SCH (20:51)
[2022-09-03] MEDS: LACTATED RINGER'S 1,000 ML IV SCH ×2 (04:13→17:15)
[2022-09-03] MEDS: HYDROmorphone INJ 0.5 MG/0.5 ML SYR IV PRN (05:45)
--- NOTE | 2022-09-03 05:57 | Electrocardiogram Report ---
Test Reason : Blood Pressure : / mmHG Vent. Rate : 068 BPM Atrial Rate : 068 BPM P-R Int : 196 ms QRS Dur : 096 ms QT Int : 378 ms P-R-T Axes : 024 064 068 degrees QTc Int : 401 ms Normal sinus rhythm Incomplete right bundle branch block Nonspecific T wave abnormality Abnormal ECG When compared with ECG of 05-SEP-2018 16:03, Incomplete right bundle branch block is now Present Confirmed by Genaro Sellers ([id number]) on 09/03/2022 5:56:24 AM Referred By: REFERRED SELF Confirmed By:Genaro Sellers
[2022-09-03 06:36] LABS: Basophils # (auto) 0.03 K/uL (0-0.2); Basophils % (auto) 0.3 %; Eosinophils # (auto) 0.03 K/uL (0-0.50); Eosinophils % (auto) 0.3 %; Hematocrit (blood only) 45.6 % (42.0-52.0); Hemoglobin 15.5 g/dl (14.0-18.0); Immature Granulocytes # (auto) 0.04 K/uL (0.01-0.20); Immature Granulocytes % (auto) 0.4 %; Lymphocytes # (auto) 2.49 K/uL (1.2-3.4); Lymphocytes % (auto) 22.5 %; Mean Corpuscular Hemoglobin 29.6 pg (25.0-34.0); Mean Platelet Volume 9.7 fL (9.4-12.4); Monocytes # (auto) 1.06 K/uL (0.11-0.59); Monocytes % (auto) 9.6 %; Neutrophils # (auto) 7.42 K/uL (1.40-6.50); Neutrophils % (auto) 66.9 %; Platelet Count 158 K/uL (130-400); RDW Coefficient of Variation 13.7 % (11.5-14.5); RDW Standard Deviation 43.2 fL (36.4-46.3); Red Blood Count 5.24 M/uL (4.70-6.10); White Blood Count 11.07 K/ul (4.8-10.8)
[2022-09-03 06:47] LABS: BUN Creatinine Ratio 11.3 (10-20); Calcium 9.2 mg/dl (8.6-10.3); Creatinine Clr Calc Pharmacy 84.7 ml/min; Est GFR (African American) 69.8 ml/min; Est GFR (Non-African American) 60.2 ml/min; Magnesium 1.9 mg/dl (1.7-2.4); Potassium 3.9 mmol/L (3.5-5.1)
[2022-09-03] MEDS: ACETAMINOPHEN 325 MG TAB PO PRN (06:54)
[2022-09-03] MEDS: traMADol HCL 50 MG TABLET PO PRN ×3 (06:55→21:11)
[2022-09-03] MEDS: DICYCLOMINE HCL 10 MG CAP PO PRN (07:39)
[2022-09-03] MEDS ORDERED: HYDROmorphone INJ 0.5 MG/0.5 ML SYR IV ONE (08:12)
[2022-09-03] MEDS: NYSTATIN POWDER 15GM BTL EXT SCH ×2 (08:39→21:04)
[2022-09-03] MEDS: ONDANSETRON INJ 2 MG/ML 2 ML VIAL IV PRN ×2 (08:40→23:02)
[2022-09-03] MEDS ORDERED: TAMSULOSIN HCL 0.4 MG CAP PO ONE (08:56)
--- NOTE | 2022-09-03 08:56 | Urology Progress Note ---
Date of Service September 03, 2022 Assessment & Plan (1) Kidney stone: Plan: Obstructing left ureteral calculi Intermittent pain He does feel there is been some progression of movement as his pain has shifted location He is experiencing some urinary urgency and frequency which is often a sign of progression of the stone through the bladder muscle Despite his rising creatinine, I think it would be okay to give him a solitary dose of Toradol today Continue hydration I have added tamsulosin Despite his pain he is adamant that he would very much like to eat I have ordered a diet but made him n.p.o. after midnight We did offer him intervention yesterday during routine working hours and he opted to attempt a trial of passage He remains adamant he would like to continue trial of passage today I would prefer to avoid any emergent weekend intervention unless he has substantial hemodynamic instability given his choice to avoid it thus far I have explained that if we can get his pain under control he could go home and treat the stone as an outpatient with a solitary surgeryhe is very much interested in this rather than 2 interventions Admission and Anticipated Discharge Date Admission Date: September 02, 2022 Subjective No stone passage overnight Remains adamant that he would like to avoid a procedure and stent placement That said, he is having significant discomfort this morning He has had narcotic pain medications without drastic improvement He is not experiencing fevers Leukocytosis is improved from 17-11 since admission Creatinine has risen slightly to 1.24 As expected Hemodynamically stable Physical Exam Physical Exam: Obese, in clear discomfort while I was evaluating him Constitutional: well developed and well nourished Respiratory: no respiratory distress Cardiovascular: Extremities: no pedal edema Gastrointestinal (Abdomen): Inspection/Auscultation: abdomen normal to inspection Results & Data Vital Signs (Past 12 Hours) Vital Signs Temp Pulse Resp BP Pulse Ox O2 Del Method O2 Flow Rate 09/03/22 07:04 37.2 C 64 18 165/86 H 94 Room Air 09/02/22 23:15 CPAP 09/02/22 22:37 37.3 C 77 18 168/98 H 95 CPAP 2 PG Care Time/CCT Total # of Minutes Spent Total Time Spent with Patient: Total time spent is greater than 50% in coordination of care (as documented) at patient's floor/unit and/or counseling patient: Coding Level of Care Code 67132 SUB INP/OBS CARE 2/35MIN Diagnoses Kidney stone N20.0
[2022-09-03 09:25] LABS: Estimated Average Glucose 163 mg/dl; Hemoglobin A1C 7.3 % (4.5-5.6)
[2022-09-03] MEDS: INSULIN ASPART PER UNIT CHARGE SC SCH ×4 (09:51→21:01)
[2022-09-03] MEDS: MELOXICAM 7.5 MG TAB PO SCH (09:53)
[2022-09-03] MEDS: sulfaSALAzine 500 MG TABEC PO SCH ×2 (09:53→21:03)
[2022-09-03] MEDS: DULoxetine HCL 60 MG CAP PO SCH (09:54)
[2022-09-03] MEDS: metFORMIN HCL ER 500 MG TABCR PO SCH (09:54)
[2022-09-03] MEDS: ENOXAPARIN INJ 40 MG/0.4 ML SYR SQ SCH ×2 (09:54→10:00)
[2022-09-03] MEDS: LANTUS PER UNIT CHARGE SQ SCH ×2 (09:58→21:00)
[2022-09-03] MEDS ORDERED: KETOROLAC TROMETHAMINE 15 MG/ML VIAL IV ONE ×2 (10:55→18:14)
--- NOTE | 2022-09-03 14:21 | Hospitalist Progress Note ---
Date of Service September 03, 2022 Assessment & Plan (1) Kidney stone: Plan: Hydronephrosis with renal calculus obstruction - CT Abd/Pelvis 09/02: 2 distal ureteral stones measuring 3.4 and 4mm w/ left hydroureteronephrosis. - Patient with persistent pain. He is afebrile. Hemodynamically stable. - Current pain medication regimen: Acetaminophen 650mg po q4h scheduled, Dilaudid 0.5mg IV q3h prn, Will use Toradol sparingly given current ALDEN - Continue hydration - Urology consulted. Appreciate their recommendations. - Tamsulosin as ordered - Continue with clear liquid diet for now and advance as tolerated to DM2 diet - Continue to strain all urine - Monitor CBC and CMP Leukocytosis, improving - On admission, WBC 17.1; now improved to 11 - Suspect ? reactive secondary to stone as noted above - Will continue to monitor DM2 - Continue Lantus 40u BID - Will add coverage with meals and accuchecks AC and HS - A1c - Hold home metformin Diastolic Heart Failure - Chronic, stable - Home regimen: 40mg Lasix daily prn LE edema - Monitor for s/sx of volume overload LILLIAN - Chronic, stable - Continue use of home bipap qhs RA - Continue home Sulfasalazine, Tramadol, and Meloxicam FENGI: DM2 DVT ppx: Given h/o DVT, high risk, utilize Lovenox for dvt ppx Dispo: monitor on med/surge Code status: FULL CODE (2) Hydronephrosis with renal and ureteral calculus obstruction: (3) Leukocytosis: (4) T2DM (type 2 diabetes mellitus): (5) Diastolic heart failure: (6) LILLIAN (obstructive sleep apnea): (7) Rheumatoid arthritis: (8) GERD (gastroesophageal reflux disease): Admission and Anticipated Discharge Date Admission Date: September 02, 2022 Supervising Physician Co-Signing Physician Notes I personally examined the patient and verified all sharma points of history and exam, discussed case, and agree with decision making with Dr Govea passed one stone. ongoing pain- meds helping some - toradol the most. d/w urology, input greatly appreciated. Vitals noted, in general he appears mildly uncomfortable. Breathing unlabored no accessory muscle use good effort. Skin shows no rashes no pallor or icterus. Neuro without focal deficits. Ureterolithiasisongoing trial of spontaneous passage. IV fluids, pain control, nausea control. Urology following along as well. Otherwise as above Subjective Patient seen and evaluated at bedside this morning. Uncomfortable appearing, periods of pain causing him to writhe in bed. He states that he did pass one of the kidney stones this morning and "parts" of a second stone. Pain radiates from the back through the left side and left lower quadrant. He does note that there are periods of pain relief. + associated nausea. No vomiting. States that he is hungry but does not feel that he can eat secondary to the pain and nausea. Denies fever or chills. No CP or SOB. Review of Systems Review of Systems: See HPI Physical Exam Physical Exam: GENERAL: + uncomfortable appearing in intermittent distress secondary to pain. Obese but well developed and well nourished. Vital signs reviewed as above. EYES: EOMI. Anicteric sclerae. HENT: Moist mucous membranes. RESPIRATORY: No respiratory distress. Normal respiratory effort. Anterior and lateral lung tobar auscultated with some expiratory wheezing; otherwise clear to auscultation. CARDIOVASCULAR: Regular rate and rhythm. ABDOMEN: Obese abdomen. Soft. Mild tenderness to palpation in left lower abdomen/suprapubic region. Normal bowel sounds. EXTREMITIES: No gross deformities. 1+ BLE edema. Non-tender. SKIN: Warm, dry. NEUROLOGIC: A/O x3. Normal speech. No focal neurological deficits. PSYCHIATRIC: Cooperative. Appropriate mood and affect. Results & Data Results & Data Vital Signs (Past 12 Hours) Vital Signs Temp Pulse Resp BP Pulse Ox O2 Del Method 09/03/22 07:25 Room Air 09/03/22 07:04 37.2 C 64 18 165/86 H 94 Room Air Laboratory Results 09/03/22 09/03/22 09/03/22 Range/Units 12:10 09:25 08:11 WBC (4.8-10.8) K/ul RBC (4.70-6.10) M/uL Hgb (14.0-18.0) g/dl Hct (42.0-52.0) % MCV (80.0-100.0) fL MCH (25.0-34.0) pg MCHC (32.0-36.0) g/dL RDW Std Deviation (36.4-46.3) fL RDW Coeff of Andres (11.5-14.5) % Plt Count (130-400) K/uL MPV (9.4-12.4) fL Immature Gran % (Auto) % Neut % (Auto) % Lymph % (Auto) % [place] % (Auto) % Eos % (Auto) % Baso % (Auto) % Neut # (Auto) (1.40-6.50) K/uL Lymph # (Auto) (1.2-3.4) K/uL [place] # (Auto) (0.11-0.59) K/uL Eos # (Auto) (0-0.50) K/uL Baso # (Auto) (0-0.2) K/uL Immature Gran # (Auto) (0.01-0.20) K/uL Sodium (136-145) mmol/L Potassium (3.5-5.1) mmol/L Chloride (98-107) mmol/L Carbon Dioxide (21-32) mmol/L Anion Gap (3-11) BUN (6-23) mg/dl Creatinine (0.6-1.4) mg/dl Est Cr Clr Drug Dosing ml/min Est GFR ( Amer) ml/min Est GFR (Non-Af Amer) ml/min BUN/Creatinine Ratio (10-20) Glucose (70-99(Fasting)) mg/dl POC Glucose 132 H 151 H (70-99) mg/dl Estimat Average Glucose mg/dl Hemoglobin A1c (4.5-5.6) % Calcium (8.6-10.3) mg/dl Magnesium (1.7-2.4) mg/dl Stone Source Pending Stone Weight Pending Stone Composition Pending Stone Composition 2 Pending 09/03/22 09/03/22 09/03/22 Range/Units 05:45 05:45 05:45 WBC 11.07 H (4.8-10.8) K/ul RBC 5.24 (4.70-6.10) M/uL Hgb 15.5 (14.0-18.0) g/dl Hct 45.6 (42.0-52.0) % MCV 87.0 (80.0-100.0) fL MCH 29.6 (25.0-34.0) pg MCHC 34.0 (32.0-36.0) g/dL RDW Std Deviation 43.2 (36.4-46.3) fL RDW Coeff of Andres 13.7 (11.5-14.5) % Plt Count 158 (130-400) K/uL MPV 9.7 (9.4-12.4) fL Immature Gran % (Auto) 0.4 % Neut % (Auto) 66.9 % Lymph % (Auto) 22.5 % [place] % (Auto) 9.6 % Eos % (Auto) 0.3 % Baso % (Auto) 0.3 % Neut # (Auto) 7.42 H (1.40-6.50) K/uL Lymph # (Auto) 2.49 (1.2-3.4) K/uL [place] # (Auto) 1.06 H (0.11-0.59) K/uL Eos # (Auto) 0.03 (0-0.50) K/uL Baso # (Auto) 0.03 (0-0.2) K/uL Immature Gran # (Auto) 0.04 (0.01-0.20) K/uL Sodium 142 (136-145) mmol/L Potassium 3.9 (3.5-5.1) mmol/L Chloride 106 (98-107) mmol/L Carbon Dioxide 28 (21-32) mmol/L Anion Gap 8 (3-11) BUN 14 (6-23) mg/dl Creatinine 1.24 (0.6-1.4) mg/dl Est Cr Clr Drug Dosing 84.7 ml/min Est GFR ( Amer) 69.8 ml/min Est GFR (Non-Af Amer) 60.2 ml/min BUN/Creatinine Ratio 11.3 (10-20) Glucose 138 H (70-99(Fasting)) mg/dl POC Glucose (70-99) mg/dl Estimat Average Glucose 163 mg/dl Hemoglobin A1c 7.3 H (4.5-5.6) % Calcium 9.2 (8.6-10.3) mg/dl Magnesium 1.9 (1.7-2.4) mg/dl Stone Source Stone Weight Stone Composition Stone Composition 2 09/02/22 09/02/22 Range/Units 20:36 17:14 WBC (4.8-10.8) K/ul RBC (4.70-6.10) M/uL Hgb (14.0-18.0) g/dl Hct (42.0-52.0) % MCV (80.0-100.0) fL MCH (25.0-34.0) pg MCHC (32.0-36.0) g/dL RDW Std Deviation (36.4-46.3) fL RDW Coeff of Andres (11.5-14.5) % Plt Count (130-400) K/uL MPV (9.4-12.4) fL Immature Gran % (Auto) % Neut % (Auto) % Lymph % (Auto) % [place] % (Auto) % Eos % (Auto) % Baso % (Auto) % Neut # (Auto) (1.40-6.50) K/uL Lymph # (Auto) (1.2-3.4) K/uL [place] # (Auto) (0.11-0.59) K/uL Eos # (Auto) (0-0.50) K/uL Baso # (Auto) (0-0.2) K/uL Immature Gran # (Auto) (0.01-0.20) K/uL Sodium (136-145) mmol/L Potassium (3.5-5.1) mmol/L Chloride (98-107) mmol/L Carbon Dioxide (21-32) mmol/L Anion Gap (3-11) BUN (6-23) mg/dl Creatinine (0.6-1.4) mg/dl Est Cr Clr Drug Dosing ml/min Est GFR ( Amer) ml/min Est GFR (Non-Af Amer) ml/min BUN/Creatinine Ratio (10-20) Glucose (70-99(Fasting)) mg/dl POC Glucose 122 H 136 H (70-99) mg/dl Estimat Average Glucose mg/dl Hemoglobin A1c (4.5-5.6) % Calcium (8.6-10.3) mg/dl Magnesium (1.7-2.4) mg/dl Stone Source Stone Weight Stone Composition Stone Composition 2 Resident Activity Tracking Resident Involvement: Resident Care Provided Care Provided: Adult [facility] Medicine
[2022-09-03] MEDS ORDERED: HYDROmorphone INJ 0.5 MG/0.5 ML SYR IV PRN (14:30)
[2022-09-03] MEDS: ACETAMINOPHEN 325 MG TAB PO SCH ×3 (15:07→23:02)
--- NOTE | 2022-09-03 20:03 | Billing Data ---
Date of Service September 03, 2022 Coding Level of Care Code 71265 SUB INP/OBS CARE
[2022-09-03] MEDS ORDERED: TAMSULOSIN HCL 0.4 MG CAP PO SCH (21:00)
[2022-09-03] MEDS ORDERED: MONTELUKAST SODIUM 10 MG TABLET PO SCH (21:00)
[2022-09-04] MEDS: ACETAMINOPHEN 325 MG TAB PO SCH ×4 (02:13→15:22)
[2022-09-04] MEDS: traMADol HCL 50 MG TABLET PO PRN ×2 (02:13→12:59)
[2022-09-04] MEDS: PROCHLORPERAZINE 10 MG in SYRINGE 8 ML IV PRN (02:23)
[2022-09-04] MEDS: LACTATED RINGER'S 1,000 ML IV SCH (05:46)
[2022-09-04 06:27] LABS: Basophils # (auto) 0.03 K/uL (0-0.2); Basophils % (auto) 0.2 %; Eosinophils # (auto) 0.03 K/uL (0-0.50); Eosinophils % (auto) 0.2 %; Hematocrit (blood only) 40.8 % (42.0-52.0); Hemoglobin 14.3 g/dl (14.0-18.0); Immature Granulocytes # (auto) 0.06 K/uL (0.01-0.20); Immature Granulocytes % (auto) 0.5 %; Lymphocytes # (auto) 1.95 K/uL (1.2-3.4); Lymphocytes % (auto) 15.1 %; Mean Corpuscular Hemoglobin 29.9 pg (25.0-34.0); Mean Corpuscular Volume 85.4 fL (80.0-100.0); Mean Platelet Volume 9.6 fL (9.4-12.4); Monocytes # (auto) 1.08 K/uL (0.11-0.59); Monocytes % (auto) 8.4 %; Neutrophils # (auto) 9.73 K/uL (1.40-6.50); Neutrophils % (auto) 75.6 %; Platelet Count 139 K/uL (130-400); RDW Coefficient of Variation 13.3 % (11.5-14.5); RDW Standard Deviation 41.7 fL (36.4-46.3); Red Blood Count 4.78 M/uL (4.70-6.10); White Blood Count 12.88 K/ul (4.8-10.8)
[2022-09-04 06:43] LABS: BUN Creatinine Ratio 12.7 (10-20); Calcium 8.9 mg/dl (8.6-10.3); Creatinine Clr Calc Pharmacy 95.5 ml/min; Est GFR (African American) 80.6 ml/min; Est GFR (Non-African American) 69.6 ml/min; Potassium 3.7 mmol/L (3.5-5.1)
[2022-09-04] MEDS: INSULIN ASPART PER UNIT CHARGE SC SCH ×2 (08:44→12:59)
--- NOTE | 2022-09-04 08:56 | Urology Progress Note ---
Date of Service September 04, 2022 Assessment & Plan (1) Kidney stone: Plan passed one stone yesterday asymptomatic now recommend d/c home with zofran and a small quantity of pain meds f/u as an outpt with imaging to confirm the second stone has passed Admission and Anticipated Discharge Date Admission Date: September 02, 2022 Subjective doing considerably better today passed a stone yesterday had some nausea last evening, but no pain or N since that time no further stone passage eager to go home Physical Exam Constitutional: well developed and well nourished Respiratory: no respiratory distress Cardiovascular: Extremities: no pedal edema Gastrointestinal (Abdomen): Inspection/Auscultation: abdomen normal to inspection Results & Data Vital Signs (Past 12 Hours) Vital Signs Temp Pulse Resp BP Pulse Ox O2 Del Method 09/04/22 07:04 37.8 C H 78 17 147/85 H 98 Room Air 09/03/22 21:10 BiPAP 09/03/22 21:18 37.2 C 68 16 149/88 H 92 Room Air, BiPAP PG Care Time/CCT Total # of Minutes Spent Total Time Spent with Patient: Total time spent is greater than 50% in coordination of care (as documented) at patient's floor/unit and/or counseling patient: Coding Level of Care Code 63322 SUB INP/OBS CARE 1/25MIN Diagnoses Kidney stone N20.0
[2022-09-04] MEDS: sulfaSALAzine 500 MG TABEC PO SCH (09:07)
[2022-09-04] MEDS: LANTUS PER UNIT CHARGE SQ SCH (09:07)
[2022-09-04] MEDS: MELOXICAM 7.5 MG TAB PO SCH (09:07)
[2022-09-04] MEDS: DULoxetine HCL 60 MG CAP PO SCH (09:07)
[2022-09-04] MEDS: metFORMIN HCL ER 500 MG TABCR PO SCH (09:07)
[2022-09-04] MEDS: NYSTATIN POWDER 15GM BTL EXT SCH (09:08)
[2022-09-04] MEDS: ENOXAPARIN INJ 40 MG/0.4 ML SYR SQ SCH (09:08)
--- NOTE | 2022-09-04 14:17 | Discharge Summary ---
Date of Service September 04, 2022 Admission HPI Per Admitting Provider Alonso Wilkinson is a 66 yo M with a pmhx of DMT2, RA, fibromyalgia, and LILLIAN who presents to the ER for the second time in 24 hours c/o left sided flank pain. Patient reports that he first noted pain 2 nights ago around 9pm. He notes that yesterday the pain was intolerable and he was experiencing nausea and dry heaves. He denies vomiting or fever/chills. Denies dysuria, hematuria, abd pain, or frequency. He has no prior history of kidney stones. He does admit to drinking a lot of green tea. He initially presented to the ER around 2am this morning, was noted on CT to have 2 small stones in the distal left ureter with hydroureter and hydronephrosis. He was treated with pain medications and it was felt that the patient would be able to pass the stones on his own at home and was discharged. Unfortunately, the patient returned with a few hours to the ER due to intractable dry heaves and persistent pain. His initial labwork early this AM revealed a WBC count of 17.13 with left shift and no other significant l aboratory abnormalities. UA looked unremarkable. Repeat labwork upon his return notes a slight decrease in his wbc to 13 and repeat UA again looks unremarkable. He was medicated with a dose of Toradol, Dilaudid, and Zofran and urology has been consulted. He has been referred to the hospitalists service for treatment. Principal Diagnosis kidney stone Discharge Exam GENERAL: Awake, alert, no acute distress. Obese but well developed and well nourished. Vital signs reviewed as above. EYES: EOMI. Anicteric sclerae. HENT: Moist mucous membranes. RESPIRATORY: No respiratory distress. Normal respiratory effort. Lungs CTAB w/o wheezing, rales, or rhonci. CARDIOVASCULAR: Regular rate and rhythm. ABDOMEN: Obese abdomen. Soft. Non-tender. Normoactive bowel sounds x4. EXTREMITIES: No gross deformities. 1+ BLE edema. Non-tender. SKIN: Warm, dry. NEUROLOGIC: A/O x3. Normal speech. No focal neurological deficits. PSYCHIATRIC: Cooperative. Appropriate mood and affect. Discharge Data Allergies Allergy/AdvReac Type Severity Reaction Status Date / Time No Known Allergies Allergy Verified 09/01/22 02:23 Consultations 09/02/22 08:05 Consult Urology Routine 09/02/22 08:47 ED Decision to Admit Stat Ordered Studies [place], [place] [phone] CT Scan Report Patient:ALONSO WILKINSON Admit Date:09/01/22 MR#:[id number] Address1:[address] Acct ID:[id number] Address2: Date:1955 [facility] Zip:[place] [id number] Age:66 Location:ED Sex:M Room/Bed: Att Phy: Diagnosis:SEVERE ABDOMINAL CRAMPING [place] Phy:Jaymie Rutherford DO Service Date:09/01/22 Fam Phy: Interpreting Phy:Estrellita Harrell Phy: Ordering Phy:Mireya Jones D.O. cc: ~ Exam(s): CT ABDOMEN + PELVIS Without Contrast EXAM: CT Abdomen and Pelvis Without Intravenous Contrast CLINICAL HISTORY: Reason for exam: left flank pain. TECHNIQUE: Axial computed tomography images of the abdomen and pelvis without intravenous contrast. CTDI is 40.69 mGy and DLP is 2252.42 mGy-cm. Automated exposure control was utilized for the study. A dose lowering technique was utilized adhering to the principles of ALARA. COMPARISON: None. FINDINGS: Lung bases: Trace bilateral lower lobe atelectasis. Heart: Borderline cardiomegaly. ABDOMEN: Liver: Diffuse fatty liver. Gallbladder and bile ducts: Slightly over distended gallbladder otherwise unremarkable gallbladder and biliary system. No calcified stones. No ductal dilation. Pancreas: Unremarkable. No ductal dilation. Spleen: Unremarkable. No splenomegaly. Adrenals: Unremarkable. No mass. Kidneys and ureters: Small stone in the lower pole of the left kidney measuring 2.7 mm. Mild left hydronephrosis with perinephric stranding. Left periatrial stranding with mild hydroureter with 2 distal ureteral stones demonstrated, one seen at the left UV junction measuring 4 mm in second seen 2 cm above the UV junction and measuring 3.4 mm. Right upper renal pole low-attenuation structure measuring 1.5 cm with slight increased attenuation, likely hemorrhagic cyst. Right upper renal pole stone measuring 1.3 mm. Otherwise unremarkable right kidney. Stomach and bowel: The descending colon is decompressed. There is mild scattered diverticulosis with no signs of diverticulitis. No obstruction. PELVIS: Appendix: No findings to suggest acute appendicitis. Bladder: Unremarkable. No stones. Reproductive: Unremarkable as visualized. ABDOMEN and PELVIS: Intraperitoneal space: Unremarkable. No free air. No significant fluid collection. Bones/joints: Degenerative disease of the spine, more severe through the lower lumbar spine and lumbosacral junction. No acute fracture. No dislocation. Soft tissues: Unremarkable. Vasculature: Unremarkable. No abdominal aortic aneurysm. Lymph nodes: Unremarkable. No enlarged lymph nodes. IMPRESSION: 1. Right mid upper renal pole cystic structure, likely hemorrhagic cyst. If indicated, this can be further followed up and confirmed with ultrasound of the right kidney to document simple renal cyst. 2. Mild left hydronephrosis and hydroureter with 2 small distal ureteral stones measuring 3.4 and 4 mm in size. Bilateral intrarenal stones. 3. Mild diverticulosis with no signs of diverticulitis. No bowel obstruction. Electronically signed by: Estrellita Vo MD 09/01/22 03:27 AM Dictated:09/01/22 0327 Transcribed: 09/01/22 0327 Labs 09/02/22 09/02/22 09/02/22 07:00 07:00 07:00 WBC 13.67 H RBC 5.33 Hgb 15.8 Hct 45.5 MCV 85.4 MCH 29.6 MCHC 34.7 RDW Std Deviation 41.6 RDW Coeff of Andres 13.4 Plt Count 163 MPV 9.5 Immature Gran % (Auto) 0.4 Neut % (Auto) 79.5 Lymph % (Auto) 12.4 [place] % (Auto) 7.4 Eos % (Auto) 0.2 Baso % (Auto) 0.1 Neut # (Auto) 10.85 H Lymph # (Auto) 1.70 [place] # (Auto) 1.01 H Eos # (Auto) 0.03 Baso # (Auto) 0.02 Immature Gran # (Auto) 0.06 Sodium 136 Potassium 3.9 Chloride 103 Carbon Dioxide 25 Anion Gap 8 BUN 12 Creatinine 1.15 Est Cr Clr Drug Dosing 91.3 Est GFR ( Amer) 76.4 Est GFR (Non-Af Amer) 65.9 BUN/Creatinine Ratio 10.4 Glucose 176 H POC Glucose Estimat Average Glucose Hemoglobin A1c Calcium 9.4 Magnesium Total Bilirubin 0.6 AST 22 ALT 23 Alkaline Phosphatase 49 Total Protein 7.3 Albumin 4.0 Globulin 3.3 Albumin/Globulin Ratio 1.2 Lipase 19 Urine Color Yellow Urine Appearance Clear Urine pH 5.5 Ur Specific [place] 1.009 Urine Protein Negative Urine Glucose (UA) Negative Urine Ketones Trace H Urine Blood Negative Urine Nitrite Negative Urine Bilirubin Negative Urine Urobilinogen Negative Ur Leukocyte Esterase Negative SARS-CoV-2, RNA, NAAT 09/02/22 09/02/22 09/02/22 07:10 13:40 17:14 WBC RBC Hgb Hct MCV MCH MCHC RDW Std Deviation RDW Coeff of Andres Plt Count MPV Immature Gran % (Auto) Neut % (Auto) Lymph % (Auto) [place] % (Auto) Eos % (Auto) Baso % (Auto) Neut # (Auto) Lymph # (Auto) [place] # (Auto) Eos # (Auto) Baso # (Auto) Immature Gran # (Auto) Sodium Potassium Chloride Carbon Dioxide Anion Gap BUN Creatinine Est Cr Clr Drug Dosing Est GFR ( Amer) Est GFR (Non-Af Amer) BUN/Creatinine Ratio Glucose POC Glucose 125 H 136 H Estimat Average Glucose Hemoglobin A1c Calcium Magnesium Total Bilirubin AST ALT Alkaline Phosphatase Total Protein Albumin Globulin Albumin/Globulin Ratio Lipase Urine Color Urine Appearance Urine pH Ur Specific [place] Urine Protein Urine Glucose (UA) Urine Ketones Urine Blood Urine Nitrite Urine Bilirubin Urine Urobilinogen Ur Leukocyte Esterase SARS-CoV-2, RNA, NAAT NEGATIVE 09/02/22 09/03/22 09/03/22 20:36 05:45 05:45 WBC 11.07 H RBC 5.24 Hgb 15.5 Hct 45.6 MCV 87.0 MCH 29.6 MCHC 34.0 RDW Std Deviation 43.2 RDW Coeff of Andres 13.7 Plt Count 158 MPV 9.7 Immature Gran % (Auto) 0.4 Neut % (Auto) 66.9 Lymph % (Auto) 22.5 [place] % (Auto) 9.6 Eos % (Auto) 0.3 Baso % (Auto) 0.3 Neut # (Auto) 7.42 H Lymph # (Auto) 2.49 [place] # (Auto) 1.06 H Eos # (Auto) 0.03 Baso # (Auto) 0.03 Immature Gran # (Auto) 0.04 Sodium 142 Potassium 3.9 Chloride 106 Carbon Dioxide 28 Anion Gap 8 BUN 14 Creatinine 1.24 Est Cr Clr Drug Dosing 84.7 Est GFR ( Amer) 69.8 Est GFR (Non-Af Amer) 60.2 BUN/Creatinine Ratio 11.3 Glucose 138 H POC Glucose 122 H Estimat Average Glucose Hemoglobin A1c Calcium 9.2 Magnesium 1.9 Total Bilirubin AST ALT Alkaline Phosphatase Total Protein Albumin Globulin Albumin/Globulin Ratio Lipase Urine Color Urine Appearance Urine pH Ur Specific [place] Urine Protein Urine Glucose (UA) Urine Ketones Urine Blood Urine Nitrite Urine Bilirubin Urine Urobilinogen Ur Leukocyte Esterase SARS-CoV-2, RNA, NAAT 09/03/22 09/03/22 09/03/22 05:45 08:11 12:10 WBC RBC Hgb Hct MCV MCH MCHC RDW Std Deviation RDW Coeff of Andres Plt Count MPV Immature Gran % (Auto) Neut % (Auto) Lymph % (Auto) [place] % (Auto) Eos % (Auto) Baso % (Auto) Neut # (Auto) Lymph # (Auto) [place] # (Auto) Eos # (Auto) Baso # (Auto) Immature Gran # (Auto) Sodium Potassium Chloride Carbon Dioxide Anion Gap BUN Creatinine Est Cr Clr Drug Dosing Est GFR ( Amer) Est GFR (Non-Af Amer) BUN/Creatinine Ratio Glucose POC Glucose 151 H 132 H Estimat Average Glucose 163 Hemoglobin A1c 7.3 H Calcium Magnesium Total Bilirubin AST ALT Alkaline Phosphatase Total Protein Albumin Globulin Albumin/Globulin Ratio Lipase Urine Color Urine Appearance Urine pH Ur Specific [place] Urine Protein Urine Glucose (UA) Urine Ketones Urine Blood Urine Nitrite Urine Bilirubin Urine Urobilinogen Ur Leukocyte Esterase SARS-CoV-2, RNA, NAAT 09/03/22 09/03/22 09/04/22 17:05 20:32 05:53 WBC 12.88 H RBC 4.78 Hgb 14.3 Hct 40.8 L MCV 85.4 MCH 29.9 MCHC 35.0 RDW Std Deviation 41.7 RDW Coeff of Andres 13.3 Plt Count 139 MPV 9.6 Immature Gran % (Auto) 0.5 Neut % (Auto) 75.6 Lymph % (Auto) 15.1 [place] % (Auto) 8.4 Eos % (Auto) 0.2 Baso % (Auto) 0.2 Neut # (Auto) 9.73 H Lymph # (Auto) 1.95 [place] # (Auto) 1.08 H Eos # (Auto) 0.03 Baso # (Auto) 0.03 Immature Gran # (Auto) 0.06 Sodium Potassium Chloride Carbon Dioxide Anion Gap BUN Creatinine Est Cr Clr Drug Dosing Est GFR ( Amer) Est GFR (Non-Af Amer) BUN/Creatinine Ratio Glucose POC Glucose 122 H 129 H Estimat Average Glucose Hemoglobin A1c Calcium Magnesium Total Bilirubin AST ALT Alkaline Phosphatase Total Protein Albumin Globulin Albumin/Globulin Ratio Lipase Urine Color Urine Appearance Urine pH Ur Specific [place] Urine Protein Urine Glucose (UA) Urine Ketones Urine Blood Urine Nitrite Urine Bilirubin Urine Urobilinogen Ur Leukocyte Esterase SARS-CoV-2, RNA, NAAT 09/04/22 09/04/22 09/04/22 05:53 08:21 11:48 WBC RBC Hgb Hct MCV MCH MCHC RDW Std Deviation RDW Coeff of Andres Plt Count MPV Immature Gran % (Auto) Neut % (Auto) Lymph % (Auto) [place] % (Auto) Eos % (Auto) Baso % (Auto) Neut # (Auto) Lymph # (Auto) [place] # (Auto) Eos # (Auto) Baso # (Auto) Immature Gran # (Auto) Sodium 138 Potassium 3.7 Chloride 103 Carbon Dioxide 28 Anion Gap 7 BUN 14 Creatinine 1.10 Est Cr Clr Drug Dosing 95.5 Est GFR ( Amer) 80.6 Est GFR (Non-Af Amer) 69.6 BUN/Creatinine Ratio 12.7 Glucose 135 H POC Glucose 131 H 168 H Estimat Average Glucose Hemoglobin A1c Calcium 8.9 Magnesium Total Bilirubin AST ALT Alkaline Phosphatase Total Protein Albumin Globulin Albumin/Globulin Ratio Lipase Urine Color Urine Appearance Urine pH Ur Specific [place] Urine Protein Urine Glucose (UA) Urine Ketones Urine Blood Urine Nitrite Urine Bilirubin Urine Urobilinogen Ur Leukocyte Esterase SARS-CoV-2, RNA, NAAT 09/04/22 14:42 WBC RBC Hgb Hct MCV MCH MCHC RDW Std Deviation RDW Coeff of Andres Plt Count MPV Immature Gran % (Auto) Neut % (Auto) Lymph % (Auto) [place] % (Auto) Eos % (Auto) Baso % (Auto) Neut # (Auto) Lymph # (Auto) [place] # (Auto) Eos # (Auto) Baso # (Auto) Immature Gran # (Auto) Sodium Potassium Chloride Carbon Dioxide Anion Gap BUN Creatinine Est Cr Clr Drug Dosing Est GFR ( Amer) Est GFR (Non-Af Amer) BUN/Creatinine Ratio Glucose POC Glucose 100 H Estimat Average Glucose Hemoglobin A1c Calcium Magnesium Total Bilirubin AST ALT Alkaline Phosphatase Total Protein Albumin Globulin Albumin/Globulin Ratio Lipase Urine Color Urine Appearance Urine pH Ur Specific [place] Urine Protein Urine Glucose (UA) Urine Ketones Urine Blood Urine Nitrite Urine Bilirubin Urine Urobilinogen Ur Leukocyte Esterase SARS-CoV-2, RNA, NAAT Hospital Course (1) Kidney stone: Hydronephrosis with renal calculus obstruction - CT Abd/Pelvis 09/02: 2 distal ureteral stones measuring 3.4 and 4mm w/ left hydroureteronephrosis. - Patient was afebrile and hemodynamically stable throughout hospitalization - Pain was controlled w/ pain regimen including Acetaminophen 650mg po q4h scheduled, Dilaudid 0.5mg IV q3h prn, and Toradol sparingly - Urology consulted during hospitalization; acute surgical intervention was deferred as patient opted for trial of passage. He successfully passed one stone during hospitalization on 09/03. - Patient discharged on Tamsulosin and Zofran. Red flag warning signs that would suggest re-evaluation were reviewed with patient. - He should follow up with both PCP and urology within 1 week. - Advised to continue to strain all urine - Recommend repeat CBC and BMP in 1 week Leukocytosis, improving - On admission, WBC 17.1; now improved to 11, slight increase to 12.88 on day of discharge. Red flag symptoms for return reviewed with patient as above. - Suspect ? reactive secondary to stone as noted above DM2 - Restarted on home regimen on discharge - A1c 7.3% (on 09/03/22) Diastolic Heart Failure - Chronic, stable - Home regimen: 40mg Lasix daily prn LE edema LILLIAN - Chronic, stable - Continue use of home bipap qhs RA - Continue home Sulfasalazine, Tramadol, and Meloxicam (2) Hydronephrosis with renal and ureteral calculus obstruction: (3) Leukocytosis: (4) T2DM (type 2 diabetes mellitus): (5) Diastolic heart failure: (6) LILLIAN (obstructive sleep apnea): (7) Rheumatoid arthritis: (8) GERD (gastroesophageal reflux disease): Total Time Total Time Spent Total Time Spent (In Minutes): < 30 min Discharge Plan Discharge Items Patient Disposition: Home - Self-Care Reason For Visit: FLANK PAIN, KIDNEY STONES Discharge Diagnosis: kidney stones Activity: Resume your previous activity Non-emergency contact: Primary Care Provider and Urologist Call non-emergency contact if: you have any medication questions, your pain is not controlled and you have a fever Follow-up/Referrals: Alan Steward MD [Physician] - Jaymie Rutherford DO [Primary Care Provider] - Diet: Carb Consistent or DM2 Addtl Attending Provider Instructions: It was our pleasure to care for you at [facility] from 09/02/22 to 09/04/22. You initially presented to the emergency room with concern for left sided flank and abdominal pain. Through imaging and testing, it was determined that you had 2 kidney stones. Thankfully, one of those stones passed while you were in the hospital and your pain and nausea are both now well controlled. You have done well and at this time we feel that it is safe for you to be discharged home. A discharge summary will be sent to your primary care physician to ensure continuity of care. Please bring this discharge summary with you to your next office appointment so that your provider can review it at that time. Follow-up appointments: Make a follow-up appointment with your PCP within the next week. It is very important that you follow up with them shortly after discharge from the hospital. Please make a follow-up appointment with the urologist. You wi ll likely need outpatient imaging to confirm that the second stone has passed. Keep all your follow-up appointments as already scheduled. If you cannot make an appointment, notify your provider. Medications: Your medication list has been reviewed and reconciled upon discharge to ensure accuracy and continuity of care. An updated list of all your medications is included with your hospital discharge paperwork. Please review this list closely, and make note of any changes. A new medication, Zofran, has been added to your medication list. This medication can be used to help prevent nausea. It is a tab that will disintegrate under your tongue. A new medication, Tamsulosin, has been added to your medication list. This medication should be taken once a day until the second stone has passed or until you have been evaluated by urology. A prescription for these medications were sent to your pharmacy, [facility] in [place]. If you have any issues filling these prescriptions, please call [phone] and ask to leave a message for Dr. Govea. Take your medications as instructed; do not skip a dose of your medicines. Make sure all of your doctors know every medicine you are taking (including [id number]-[id number]-ohmrcmy medicines, vitamins, and supplements). Call your primary care provider before taking any new medicines (including over- the- counter medicines, vitamins, and supplements), because some of these may interact with your current medications, or may make your symptoms worse. Tell your primary care provider if you cannot afford your medications. CONTACT YOUR PRIMARY CARE PROVIDER if you experience any of the following: Worsening of symptoms Fever, chills, or fatigue Difficulty following your treatment plan, or difficulty taking medications CALL 911 OR GO TO THE EMERGENCY DEPARTMENT if you experience any of the following: Sudden, severe abdominal pain or nausea/vomiting Severe chest pain, or chest pain that radiates (moves) to your jaw or arm Sudden, severe shortness of breath or difficulty breathing Thank you for allowing us to participate in your care. Pending Studies at Discharge: Yes (stone composition labs ) Stand-Alone Forms: [facility] [employer] [place], Pain - Opioid Pain Management, Smoking Cessation Medications and DC Order Prescriptions: New tamsulosin 0.4 mg Capsule 0.4 mg PO HS 14 Days Qty: 14 0RF ondansetron 4 mg tablet,disintegrating 4 mg PO Q6H PRN (Reason: nausea and vomiting) Qty: 20 0RF Continued montelukast [Singulair] 10 mg tablet 10 mg PO DAILY Qty: 90 3RF meloxicam 15 mg tablet 15 mg PO QAM Qty: 30 5RF insulin glargine [Lantus Solostar U-100 Insulin] 100 unit/mL (3 mL) insulin pen 40 unit subcut BID Qty: 15 5RF tramadol 50 mg tablet 50 - 100 mg PO Q6H PRN (Reason: Pain) Qty: 90 0RF fluticasone propionate [Flonase Allergy Relief] 50 mcg/actuation spray,suspension 1 - 2 spray INTRANASAL HS PRN (Reason: Congestion) Qty: 16 5RF multivitamin tablet 1 tab PO QAM Qty: 30 5RF guaifenesin [Mucinex] 600 mg tablet extended release 12hr 600 mg PO BID PRN (Reason: Congestion) cholecalciferol (vitamin D3) [Vitamin D3] 50 mcg (2,000 unit) tablet 4,000 units PO DAILY Rx Instructions: gummies sulfasalazine 500 mg tablet,delayed release (DR/EC) 0.5 g PO BID Qty: 180 1RF duloxetine 60 mg capsule,delayed release(DR/EC) 60 mg PO QAM Qty: 90 1RF levocetirizine [Xyzal] 5 mg tablet 5 mg PO QPM dicyclomine 10 mg capsule 10 mg PO QID PRN (Reason: Abdominal Pain) Qty: 120 0RF metformin 500 mg tablet extended release 24 hr 500 mg PO DAILY Qty: 90 1RF acetaminophen 650 mg Tablet Extended Release 650 mg PO Q8H PRN (Reason: Pain) furosemide 40 mg tablet 40 mg PO DAILY PRN (Reason: swelling) omega-3 fatty acids 1,000 mg Capsule 2,000 mg PO DAILY alpha lipoic acid 200 mg Tablet 0 mg PO DAILY Rx Instructions: UNSURE OF STRENGTH turmeric 400 mg Capsule 400 mg PO DAILY Glucosamine Chondroitin 550-30-1 mg Capsule 2 cap PO DAILY Discontinued metformin 500 mg tablet 500 mg PO BID Qty: 180 5RF Hold Instructions: Home Medication placed on hold at Doctor's office Rx Instructions: ON HOLD No Action (DME) BiPap Machine Misc See Rx Instructions .Route Qty: 1 0RF Rx Instructions: BiPAP 14/6, biflex2; oxygen 2L/min (DME) miscellaneous medical supply Pad See Rx Instructions .Route Qty: 100 1RF Rx Instructions: As directed Cosmopor sterile adhesive dressing (DME) Aquacel Extra 2 X 2 " bandage See Rx Instructions .Route Qty: 100 1RF Rx Instructions: As directed (DME) pen needle, diabetic [BD Ultra-Fine Mini Pen Needle] 31 gauge x 3/16" needle See Dose Instructions .ROUTE .MEDSUPPLY Qty: 200 3RF Dose Instruction: As directed Rx Instructions: inject with insulin 2 times daily (DME) OneTouch Verio test strips Strip See Rx Instructions .ROUTE .MEDSUPPLY Qty: 300 1RF Rx Instructions: test blood sugar TID (DME) Portable Oxygen Misc See Rx Instructions .ROUTE .MEDSUPPLY Qty: 1 0RF Rx Instructions: 2L NC w/ activity (DME) lancets [OneTouch Delica Lancets] 33 gauge misc See Rx Instructions .ROUTE .MEDSUPPLY Dose Instruction: As directed Rx Instructions: Testing three times daily. Discharge Orders: Discharge Order (Routine); Ordered 09/04/22 Ordered By: Rosario Bardales/Other Patient Handouts: A1C, Managing Type 2 Diabetes, Kidney Stones: Are You at Risk?, Kidney Stones: Your Evaluation, Special Foot Care for Diabetes Admission Data Admit Date/Time: 09/02/22 11:26 Attending Provider: Bhupinder Will Admit Provider: Bhupinder Will Primary Care Provider: Jaymie Rutherford Other Providers: Alan Steward ; Bhupinder Will Other Interventions: Discharge Summary Assessment (RN) Last Done: 09/04/22 16:03 Supervising Physician Co-Signing Physician Notes I personally examined the patient and verified all sharma points of history and exam, discussed case, and agree with decision making with Dr Govea Pain is basically gone. Had a low-grade temp earlierbut did not feel feverish. No chills or sweats no dysuria. Urology input greatly appreciated as well. Vitals noted, in general he appears mildly uncomfortable. Breathing unlabored no accessory muscle use good effort. Skin shows no rashes no pallor or icterus. Neuro without focal deficits. Ureterolithiasisongoing trial of spontaneous passage seems to be successfulwith his resolution of symptoms I suspect the second stone is in his bladder. Safe/stable for homewith no dysuria, did not feel the fever, no chills or sweatshe does not show anything that seems consistent with infectioni.e. no antibiotic coverage appears to be needed. Safe for home, outlined red flags for which she should return to seek care. On review of his med list, given that it seems that the stone probably dropped into his bladder, and the risk for polypharmacy/interactions adding any additional narcotics would be quite high, we will hold off on any additional prescriptions for pain medications. Otherwise as above Resident Activity Tracking Resident Involvement: Resident Care Provided Care Provided: Adult Hospital Medicine
[2022-09-04] MEDS: DICYCLOMINE HCL 10 MG CAP PO PRN (15:54)
--- NOTE | 2022-09-04 18:50 | Billing Data ---
Date of Service September 04, 2022 Coding Level of Care Code 69339 IN/OBS DISCH 30 MIN/LESS
[2022-09-09 19:41] LABS: Component 2 DNR; Source KIDNEY STONE
== END 2022-09-04 17:30 | disposition home or self-care (01) | DRG 694 ==
LOC: ED 06:13 → EDINP 11:26 → 3W 16:26

== ENCOUNTER 2022-12-29 08:20 | Inpatient (IN) ==
[2022-12-29] MEDS ORDERED: ONDANSETRON INJ 2 MG/ML 2 ML VIAL IV STA (08:46)
[2022-12-29] MEDS ORDERED: MoRPHine SULFATE 4 MG/ML 1 ML CARP\\VIAL IV STA (08:46)
--- NOTE | 2022-12-29 08:48 | Emergency Department Note ---
History of Present Illness General Chief complaint: Kidney Stone Stated complaint: HERE LAST NIGHT,WORSENING PAIN,KIDNEY STONES Time Seen by Provider: 12/29/22 08:36 History of Present Illness Maximum Pain Intensity: 10 This is a 67-year-old male that presents to the emergency department via private vehicle accompanied by with complaints of "right flank pain". Patient notes that he was here in the ED last evening and diagnosed with a 4 mm right UVJ stone. He notes that he was discharged home and tried taking Tylenol at 3 AM and oxycodone at 5 AM this morning without any relief. He notes diaphoresis and ongoing severe right flank pain. Current pain 02/28. No fevers. He notes remote history of kidney stones in the past on the other side. Home Medications Medication Instructions Recorded Confirmed Type fluticasone propionate 50 1 - 2 spray intranasal HS PRN 11/13/18 12/29/22 Rx mcg/actuation nasal Congestion #16 grams spray,suspension (Flonase Allergy Relief) multivitamin 1 tab PO QAM #30 tabs 11/13/18 12/29/22 Rx cholecalciferol (vitamin D3) 50 4,000 units PO DAILY 03/06/20 12/29/22 History mcg (2,000 unit) tablet (Vitamin D3) lancets 33 gauge (OneTouch Delica 10/08/20 11/23/22 History Lancets) BiPap Machine #1 ea 03/18/21 11/23/22 Rx Portable Oxygen #1 ea 05/27/21 11/23/22 Rx guaifenesin 600 mg tablet, 600 mg PO BID PRN Congestion 05/27/21 12/29/22 History extended release 12 hr (Mucinex) hydrocolloid dressing 2" X 2" #100 ea 10/21/21 11/23/22 Rx (Aquacel Extra) miscellaneous medical supply #100 ea 10/21/21 11/23/22 Rx levocetirizine 5 mg tablet (Xyzal) 5 mg PO QPM 01/31/22 12/29/22 History BD Ultra-Fine Mini Pen Needle 31 #200 ea 04/12/22 11/23/22 Rx gauge x 3/16" (pen needle, diabetic) glucosamine sulf dipot 2 cap PO DAILY 09/01/22 12/29/22 History chlr,msm,chond 550 mg-C 30 mg-jacques 1 mg capsule (Glucosamine Chondroitin) omega-3 fatty acids 1,000 mg 2,000 mg PO BID 09/01/22 12/29/22 History capsule turmeric 400 mg capsule 400 mg PO BID 09/01/22 12/29/22 History acetaminophen 650 mg 650 mg PO Q8H PRN Pain 09/02/22 12/29/22 History tablet,extended release furosemide 40 mg tablet 40 mg PO DAILY PRN swelling 09/02/22 12/29/22 History alpha lipoic acid 200 mg tablet 200 mg PO DAILY 09/13/22 12/29/22 History meloxicam 15 mg tablet 15 mg PO QAM #30 tabs 10/24/22 12/29/22 Rx Medical Marijuana 0 inhaler inhalation BID PRN Pain 11/03/22 12/29/22 History dicyclomine 10 mg capsule 10 mg PO QID PRN Abdominal Pain 11/08/22 12/29/22 Rx #120 caps blood sugar diagnostic (OneTouch #300 ea 11/21/22 11/23/22 Rx Verio test strips) duloxetine 60 mg capsule,delayed 60 mg PO QAM #90 caps 12/05/22 12/29/22 Rx release sulfasalazine 500 mg 0.5 g PO BID #180 tabs 12/07/22 12/29/22 Rx tablet,delayed release montelukast 10 mg tablet 10 mg PO DAILY #90 tabs 12/14/22 12/29/22 Rx (Singulair) insulin glargine 100 unit/mL (3 40 unit (0.4 mL) subcut BID #15 mL 12/20/22 12/29/22 Rx mL) subcutaneous pen (Lantus Solostar U-100 Insulin) tramadol 50 mg tablet 50 - 100 mg PO Q6H PRN Pain #90 12/22/22 12/29/22 Rx tabs oxycodone 5 mg tablet 5 mg PO Q8H PRN pain #10 tabs 12/28/22 12/29/22 Rx metformin 500 mg tablet,extended 500 mg PO DAILY #90 tabs 12/29/22 12/29/22 Rx release 24 hr vitamin B complex 1 tab PO DAILY 12/29/22 12/29/22 History Allergies Allergy/AdvReac Type Severity Reaction Status Date / Time No Known Allergies Allergy Verified 12/28/22 22:59 Past Med/Surg History Medical History Allergic rhinitis Bursitis of left shoulder Deep vein thrombosis hx of, multiple in legs, no blood thinners Degenerative arthritis of knee, bilateral Degenerative disc disease Depression Diabetes mellitus type 2, uncontrolled, without complications Diastolic heart failure Esophageal dysphagia Fibromyalgia GERD (gastroesophageal reflux disease) Hearing deficit History of deep vein thrombophlebitis of lower extremity Hyperhidrosis Hypertriglyceridemia Hypothyroidism IBS (irritable bowel syndrome) Insomnia Lyme disease LILLIAN (obstructive sleep apnea) Osteoarthritis involving multiple joints on both sides of body Rheumatoid arthritis Syncope T2DM (type 2 diabetes mellitus) Trigger thumb, right thumb Venous insufficiency (chronic) (peripheral) Vitamin D deficiency Surgical History History of appendectomy History of cardiac cath "a long time ago", no stents History of colonoscopy History of tooth extraction History of umbilical hernia repair Family History Aunt Family history of diabetes mellitus Sister Family history of diabetes mellitus Hypertension Colorectal cancer Mother No problems noted. 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 Feels Safe at Home: Yes Childhood Exposure to Second-Hand Smoke: No Diet: diabetic and low carbohydrate Diet Comment: similar to keto during the past year weight has: remained stable Dental Care, Regularly: Yes Physical Activity Frequency: Other Physical Activity Frequency Comment: Limited due to physical condition. Seatbelt Use: always Sunscreen Use: No Assistive Devices: BiPap and Denture - Upper Review of Systems A total of 10 systems reviewed and were otherwise negative Physical Exam Vital Signs Vital Signs - 24 hr 12/29/22 08:33 12/29/22 09:55 12/29/22 09:56 Temperature 36 C L Temperature Source Temporal Artery Scan Pulse Rate 59 L 54 L 54 L Pulse Rate from SpO2 Sensor Pulse Rhythm Regular Pulse Strength Normal Respiratory Rate 22 24 Respiratory Effort / Characteristics Non-Labored Spontaneous Respiratory Depth Normal Respiratory Pattern Regular Blood Pressure 192/90 H 165/103 H Blood Pressure Mean 124 123 Blood Pressure Position Sitting Pulse Oximetry 96 96 Oxygen Delivery Method Room Air Oxygen Flow Rate Sepsis Recent Fever Within 48 Hours No Sepsis New/Unexplained Change in Mental Status No Sepsis Action Taken by Nursing No Action Required 12/29/22 10:00 12/29/22 10:30 12/29/22 11:01 Temperature Temperature Source Pulse Rate 54 L 62 64 Pulse Rate from SpO2 Sensor 56 L 62 66 Pulse Rhythm Pulse Strength Respiratory Rate 16 14 16 Respiratory Effort / Characteristics Respiratory Depth Respiratory Pattern Blood Pressure 167/79 H 183/103 H Blood Pressure Mean 108 129 Blood Pressure Position Pulse Oximetry 87 L 95 93 Oxygen Delivery Method Room Air Nasal Cannula Oxygen Flow Rate 2 2 Sepsis Recent Fever Within 48 Hours Sepsis New/Unexplained Change in Mental Status Sepsis Action Taken by Nursing 12/29/22 13:37 Temperature Temperature Source Pulse Rate 79 Pulse Rate from SpO2 Sensor 71 Pulse Rhythm Pulse Strength Respiratory Rate 17 Respiratory Effort / Characteristics Respiratory Depth Respiratory Pattern Blood Pressure 183/90 H Blood Pressure Mean 121 Blood Pressure Position Pulse Oximetry 94 Oxygen Delivery Method Nasal Cannula Oxygen Flow Rate 2 Sepsis Recent Fever Within 48 Hours Sepsis New/Unexplained Change in Mental Status Sepsis Action Taken by Nursing VITAL SIGNS - Vital signs and nursing notes were reviewed. Hypertensive, otherwise stable. GENERAL -67-year-old male appearing his stated age who is in no acute distress but appears to be in pain. Communicates well with provider and answers questions appropriately. SKIN - Without rashes. No meningeal or petechial rash. HEAD - NC/AT. EYES - Sclera anicteric. NECK - No nuchal rigidity. LUNGS - Chest wall symmetric without accessory muscle use, intercostals retractions, or central cyanosis. Normal vesicular breath sounds CTA B/L. No wheezes, rales, or rhonchi appreciated. CARDIAC - RRR with S1/S2. No murmur, rubs, or gallops appreciated. ABDOMEN - Abdominal contour normal without pulsations or visible masses. BS normoactive all four quadrants. Right flank tenderness to palpation noted. No tenderness, palpable masses, hepatosplenomegaly, or ascites noted. EXTREMITIES - No clubbing or peripheral cyanosis. +5/5 strength noted in UE/LE bilaterally. NEUROLOGIC - Cranial nerves II through XII grossly intact. PSYCH - A&Ox3 and cooperates fully with examiner. Pt is very pleasant and interacts well with examiner. Course Administered Medications Sodium Chloride (Nss) 500 mls @ 125 mls/hr IV .Q4H ALTHEA Stop: 01/28/23 11:29 Last Admin: 12/29/22 11:47 Dose: 125 mls/hr Documented By: PARDEEP Discontinued Medications Hydromorphone HCl (Hydromorphone Inj 1 Mg/Ml Syringe) 1 mg IV NOW STA Stop: 12/29/22 09:48 Last Admin: 12/29/22 09:50 Dose: 1 mg Documented By: RITESH Hydromorphone HCl (Hydromorphone Inj 0.5 Mg/0.5 Ml Syr) 0.5 mg IV NOW STA Stop: 12/29/22 11:44 Last Admin: 12/29/22 11:47 Dose: 0.5 mg Documented By: PARDEEP Hydromorphone HCl (Hydromorphone Inj 1 Mg/Ml Syringe) 1 mg IV NOW STA Stop: 12/29/22 12:38 Last Admin: 12/29/22 12:43 Dose: 1 mg Documented By: RITESH Lactated Ringer's (Lr) 500 mls @ 999 mls/hr IV .Q31M ONE Stop: 12/29/22 13:08 Last Admin: 12/29/22 13:25 Dose: 999 mls/hr Documented By: ZEV Acetaminophen (Ofirmev) 1,000 mg in 100 mls @ 400 mls/hr IV NOW STA Stop: 12/29/22 12:52 Last Admin: 12/29/22 12:44 Dose: 400 mls/hr Documented By: RITESH Morphine Sulfate (Morphine Sulfate 4 Mg/Ml 1 Ml Carp\\Vial) 4 mg IV NOW STA Stop: 12/29/22 08:47 Last Admin: 12/29/22 08:57 Dose: 4 mg Documented By: RITESH Ondansetron HCl (Ondansetron Inj 2 Mg/Ml 2 Ml Vial) 4 mg IV NOW STA Stop: 12/29/22 08:47 Last Admin: 12/29/22 08:57 Dose: 4 mg Documented By: MT Tamsulosin HCl (Tamsulosin Hcl 0.4 Mg Cap) 0.4 mg PO NOW STA Stop: 12/29/22 12:21 Last Admin: 12/29/22 12:41 Dose: 0.4 mg Documented By: RITESH Medical Decision Making Laboratory Data 12/29/22 08:51 12/29/22 08:51 Lab Results 12/29/22 12/29/22 12/29/22 Range/Units 08:51 08:51 09:30 WBC 12.86 H (4.8-10.8) K/ul RBC 5.02 (4.70-6.10) M/uL Hgb 15.5 (14.0-18.0) g/dl Hct 44.0 (42.0-52.0) % MCV 87.6 (80.0-100.0) fL MCH 30.9 (25.0-34.0) pg MCHC 35.2 (32.0-36.0) g/dL RDW Std Deviation 43.2 (36.4-46.3) fL RDW Coeff of Andres 13.5 (11.5-14.5) % Plt Count 171 (130-400) K/uL MPV 9.5 (9.4-12.4) fL Immature Gran % (Auto) 0.3 % Neut % (Auto) 74.8 % Lymph % (Auto) 17.6 % Keith % (Auto) 6.7 % Eos % (Auto) 0.2 % Baso % (Auto) 0.4 % Neut # (Auto) 9.62 H (1.40-6.50) K/uL Lymph # (Auto) 2.26 (1.2-3.4) K/uL Keith # (Auto) 0.86 H (0.11-0.59) K/uL Eos # (Auto) 0.03 (0-0.50) K/uL Baso # (Auto) 0.05 (0-0.2) K/uL Immature Gran # (Auto) 0.04 (0.01-0.20) K/uL Sodium 137 (136-145) mmol/L Potassium 3.5 (3.5-5.1) mmol/L Chloride 102 (98-107) mmol/L Carbon Dioxide 25 (21-32) mmol/L Anion Gap 10 (3-11) BUN 14 (6-23) mg/dl Creatinine 0.90 (0.6-1.4) mg/dl Est Cr Clr Drug Dosing 122.1 ml/min Est GFR ( Amer) 102.1 ml/min Est GFR (Non-Af Amer) 88.1 ml/min BUN/Creatinine Ratio 15.6 (10-20) Glucose 185 H (70-99(Fasting)) mg/dl Calcium 9.5 (8.6-10.3) mg/dl Total Bilirubin 0.8 (0.2-1.0) mg/dl AST 36 (13-39) U/L ALT 37 (7-52) U/L Alkaline Phosphatase 43 (34-104) U/L Total Protein 7.9 (6.0-8.3) gm/dl Albumin 4.2 (3.4-5.0) gm/dl Globulin 3.7 (2.5-4.0) gm/dl Albumin/Globulin Ratio 1.1 (0.9-2) Urine Color Yellow Urine Appearance Clear (Clear) Urine pH 7.0 (4.5-7.5) Ur Specific Hopkins 1.012 (1.000-1.030) Urine Protein Negative (Negative) Urine Glucose (UA) Negative (Negative) Urine Ketones 2+ H (Negative) Urine Blood Negative (Negative) Urine Nitrite Negative (Negative) Urine Bilirubin Negative (Negative) Urine Urobilinogen Negative (Negative) Ur Leukocyte Esterase Negative (Negative) MDM Narrative Patient was seen and evaluated as above in room C03. Review was performed of triage nursing notes and vital signs. I did review pertinent previous visits and patient history. After obtaining a thorough history and physical examination the above work up was performed. Patient presents to us today for evaluation of ongoing right flank pain in the setting of recent kidney stone diagnosis. Per review of the CT scan that was performed last evening there was a 4 mm obstructing calculus at the right UVJ noted. Causing moderate right hydroureteronephrosis. It is important to note that there is comment of a hernia in the right lateral pelvic wall containing nonobstructed bowel loops. The patient's presentation is not consistent with that of incarcerated or strangulated hernia. Rather, pain is most consistent with that of a 4 mm obstructing calculus at the right UVJ. Options of care were discussed with the patient. The patient appears to be in a fair amount of pain on examination. IV access was established. Labs were drawn. He was medicated with IV morphine for pain, Zofran for nausea. I was notified by the nurse that the pain continued and the patient was found to be still in a lot of pain. IV Dilaudid then ordered. I do not believe that he requires repeat imaging at this time. There is leukocytosis 12.86, similar to yesterday's value of 13.92. There is hyperglycemia at 185. There is no evidence of kidney failure. Urinalysis does not reveal infection. The patient did have some brief, mild hypoxia which was managed with supplemental oxygen without issue here. Case discussed with the urology service, [facility] Seals as well as the hospitalist service. Please refer to further documentation regarding his stay. I do believe that admission is reasonable noting intractable pain secondary to obstructing ureteral calculi. GCS: 15 In the evaluation and treatment of this patient the following differential diagnoses were entertained: Ureteral calculi, AAA, dissection, UTI, pyelonephritis, among others. Impression & Plan Acute right-sided low back pain, Ureteral obstruction, right, Hydrourete ronephrosis Discharge Plan Visit Data Chief Complaint: Kidney Stone Stated Complaint: HERE LAST NIGHT,WORSENING PAIN,KIDNEY STONES ED Provider: Dante Robison ED Midlevel Provider: John Hampton Discharge Problem: Acute right-sided low back pain, Ureteral obstruction, right, Hydroureteronephrosis Patient Disposition: Admitted As Inpatient Condition: Good Discharge Instructions Interventions: ED Discharge Assessment Last Done: 12/29/22 13:42 Forms Stand Alone Forms: My [facility]MD Prescriptions Prescriptions: No Action (DME) BiPap Machine Misc See Rx Instructions .Route Qty: 1 0RF Rx Instructions: BiPAP 14/6, biflex2; oxygen 2L/min (DME) miscellaneous medical supply Pad See Rx Instructions .Route Qty: 100 1RF Rx Instructions: As directed Cosmopor sterile adhesive dressing (DME) Aquacel Extra 2 X 2 " bandage See Rx Instructions .Route Qty: 100 1RF Rx Instructions: As directed (DME) pen needle, diabetic [BD Ultra-Fine Mini Pen Needle] 31 gauge x 3/16" needle See Dose Instructions .ROUTE .MEDSUPPLY Qty: 200 3RF Dose Instruction: As directed Rx Instructions: inject with insulin 2 times daily meloxicam 15 mg tablet 15 mg PO QAM Qty: 30 5RF dicyclomine 10 mg capsule 10 mg PO QID PRN (Reason: Abdominal Pain) Qty: 120 1RF (DME) OneTouch Verio test strips Strip See Rx Instructions .ROUTE .MEDSUPPLY Qty: 300 1RF Rx Instructions: test blood sugar TID duloxetine 60 mg capsule,delayed release(DR/EC) 60 mg PO QAM Qty: 90 1RF sulfasalazine 500 mg tablet,delayed release (DR/EC) 0.5 g PO BID Qty: 180 1RF montelukast [Singulair] 10 mg tablet 10 mg PO DAILY Qty: 90 3RF insulin glargine [Lantus Solostar U-100 Insulin] 100 unit/mL (3 mL) insulin pen 40 unit subcut BID Qty: 15 5RF tramadol 50 mg tablet 50 - 100 mg PO Q6H PRN (Reason: Pain) Qty: 90 0RF metformin 500 mg tablet extended release 24 hr 500 mg PO DAILY Qty: 90 1RF fluticasone propionate [Flonase Allergy Relief] 50 mcg/actuation spray,suspension 1 - 2 spray INTRANASAL HS PRN (Reason: Congestion) Qty: 16 5RF multivitamin tablet 1 tab PO QAM Qty: 30 5RF guaifenesin [Mucinex] 600 mg tablet extended release 12hr 600 mg PO BID PRN (Reason: Congestion) (DME) Portable Oxygen Misc See Rx Instructions .ROUTE .MEDSUPPLY Qty: 1 0RF Rx Instructions: 2L NC w/ activity cholecalciferol (vitamin D3) [Vitamin D3] 50 mcg (2,000 unit) tablet 4,000 units PO DAILY Rx Instructions: gummies (DME) lancets [OneTouch Delica Lancets] 33 gauge misc See Rx Instructions .ROUTE .MEDSUPPLY Dose Instruction: As directed Rx Instructions: Testing three times daily. levocetirizine [Xyzal] 5 mg tablet 5 mg PO QPM Medical Marijuana 0 inhaler inhalation BID PRN (Reason: Pain) acetaminophen 650 mg Tablet Extended Release 650 mg PO Q8H PRN (Reason: Pain) furosemide 40 mg tablet 40 mg PO DAILY PRN (Reason: swelling) vitamin B complex Tablet 1 tab PO DAILY omega-3 fatty acids 1,000 mg Capsule 2,000 mg PO BID turmeric 400 mg Capsule 400 mg PO BID Glucosamine Chondroitin 550-30-1 mg Capsule 2 cap PO DAILY alpha lipoic acid 200 mg tablet 200 mg PO DAILY Rx Instructions: UNSURE OF STRENGTH oxycodone 5 mg tablet 5 mg PO Q8H PRN (Reason: pain) Qty: 10 0RF Referrals Referrals: Jaymie Rutherford DO [Primary Care Provider] -
[2022-12-29 09:08] LABS: Basophils # (auto) 0.05 K/uL (0-0.2); Basophils % (auto) 0.4 %; Eosinophils # (auto) 0.03 K/uL (0-0.50); Eosinophils % (auto) 0.2 %; Hemoglobin 15.5 g/dl (14.0-18.0); Immature Granulocytes # (auto) 0.04 K/uL (0.01-0.20); Immature Granulocytes % (auto) 0.3 %; Lymphocytes # (auto) 2.26 K/uL (1.2-3.4); Lymphocytes % (auto) 17.6 %; Mean Corpuscular Hemoglobin 30.9 pg (25.0-34.0); Mean Corpuscular Hgb Conc 35.2 g/dL (32.0-36.0); Mean Corpuscular Volume 87.6 fL (80.0-100.0); Mean Platelet Volume 9.5 fL (9.4-12.4); Monocytes # (auto) 0.86 K/uL (0.11-0.59); Monocytes % (auto) 6.7 %; Neutrophils # (auto) 9.62 K/uL (1.40-6.50); Neutrophils % (auto) 74.8 %; Platelet Count 171 K/uL (130-400); RDW Coefficient of Variation 13.5 % (11.5-14.5); RDW Standard Deviation 43.2 fL (36.4-46.3); Red Blood Count 5.02 M/uL (4.70-6.10); White Blood Count 12.86 K/ul (4.8-10.8)
[2022-12-29 09:26] LABS: Albumin Globulin Ratio 1.1 (0.9-2); Albumin Level 4.2 gm/dl (3.4-5.0); BUN Creatinine Ratio 15.6 (10-20); Bilirubin,Total 0.8 mg/dl (0.2-1.0); Calcium 9.5 mg/dl (8.6-10.3); Creatinine Clr Calc Pharmacy 122.1 ml/min; Est GFR (African American) 102.1 ml/min; Est GFR (Non-African American) 88.1 ml/min; Globulin 3.7 gm/dl (2.5-4.0); Potassium 3.5 mmol/L (3.5-5.1); Total Protein 7.9 gm/dl (6.0-8.3)
[2022-12-29] MEDS ORDERED: HYDROmorphone INJ 1 MG/ML SYRINGE IV STA ×2 (09:47→12:37)
[2022-12-29 09:52] LABS: Appearance Urine Clear (Clear); Bilirubin Urine Negative (Negative); Blood Urine Negative (Negative); Color Urine Yellow; Glucose Urine UA Negative (Negative); Ketones Urine 2+ (Negative); Leukocyte Esterase Urine Negative (Negative); Nitrite Urine Negative (Negative); Protein Urine Negative (Negative); Specific Gravity Urine 1.012 (1.000-1.030); Urobilinogen Urine Negative (Negative)
[2022-12-29] MEDS ORDERED: SODIUM CHLORIDE 0.9% 500 ML IV SCH (11:30)
[2022-12-29] MEDS ORDERED: HYDROmorphone INJ 0.5 MG/0.5 ML SYR IV STA (11:43)
[2022-12-29] MEDS ORDERED: TAMSULOSIN HCL 0.4 MG CAP PO STA (12:20)
[2022-12-29] MEDS ORDERED: LACTATED RINGER'S 500 ML IV ONE (12:38)
[2022-12-29] MEDS ORDERED: ACETAMINOPHEN 1,000 MG/100 ML VIAL IV STA (12:38)
[2022-12-29] MEDS ORDERED: DEXTROSE 50% 50 ML SYRINGE IV PRN (12:39)
[2022-12-29] MEDS ORDERED: GLUCAGON FOR INJ 1 MG VIAL SQ PRN (12:39)
[2022-12-29] MEDS ORDERED: CARBOHYDRATES FOR HYPOGLYCEMIA PO PRN (12:39)
[2022-12-29] MEDS ORDERED: GLUCOSE 40% GEL 15 GM TUBE PO PRN (12:39)
[2022-12-29] MEDS ORDERED: GLUCOSE 10 TAB/TUBE PO PRN (12:39)
--- NOTE | 2022-12-29 13:18 | History & Physical Report ---
Date of Service December 29, 2022 Assessment & Plan (1) Uncontrolled pain: Plan: -Admit to med/surge -Currently stable -Patient diagnosed with a 4 mm, non-obstructing calculus located at the right vesicoureteral junction with moderate right hydroureteronephrosis. -Patient has been non-febrile, with improving mild leukocytosis, no urinary symptoms, and clean UA -S/P 4 mg IV morphine and 1.5 mg IV dilaudid in the ED with continued severe pain -Will give hime a dose of PO Flomax STAT to see if the stone can pass into the bladder as it is at the vesicoureteral junction -Will give another 1 mg IV dliaudid now then continue with prn IV dilaudid for severe pain -Will give 1gm IV Acetaminophen now -Spoke with Urology, appreciate their quick response, patient would like to try and pass the stone on his own at this time, they will continue to follow but no urgent OR plans at this time -Continue to monitor fever cure for sings of infection -Hold chemical DVT PPX in case of OR in the near future -Will keep on clears for now in case urgent OR would be needed -Urine strainer ordered to monitor for stone passage -AM CBC and BMP (2) Ureterolithiasis: Plan: -4mm right, non-obstruction stone at the right vesicoureteral junction with moderate right hydroureteronephrosis -No signs of infection, renal function is stable -Will give a dose of PO flomax now then continue qhs until he passes the stone (3) T2DM (type 2 diabetes mellitus): Plan: -Hold metformin -Monitor BSG q4h until eating consistently -Normally takes 40 units Lantus BID, will decreased to 20 units BID for now until he is eating consistently -CF of 50 q4h -Adjust regimen as needed (4) Rheumatoid arthritis: Plan: -Will hold sulfasalazine for now to reduce the risk of infection (5) Diastolic heart failure: Plan: -Appears euvolemic on exam -Uses prn lasix for swelling -Monitor volume status with IV fluids (6) Venous stasis ulcers of both lower extremities: Plan: -At baseline (7) LILLIAN (obstructive sleep apnea): Plan: -HS Bipap with 2L NC ordered Plan The patient was discussed with Dr. Britt at the time of the admission History of Present Illness Chief Complaint: Uncontrolled right flank pain Primary Care Provider: Jaymie Rutherford DO Gupta is a 67 yo M with a pmhx of DMT2, RA, fibromyalgia, HFpEF and LILLIAN who presented to the [facility] ED on 12/29 with uncontrolled right flank pain. The patient was seen in the [facility] ED yesterday for the same symptoms. Labs were unremarkable and CT of the abd/pelvis wo con showed 1. There is a 4 mm obstructing calculus at the right vesicoureteral junction. This causes moderate right hydroureteronephrosis. 2. An additional small nonobstructing calculus is seen in the left kidney. 3. Hepatomegaly and severe hepatic steatosis. 4. A hernia in the right lateral pelvic wall contains nonobstructed bowel loops. 5. Colonic diverticulosis without CT evidence of acute diverticulitis.. The patient was discharged home with prn oxycodone for pain control. Overnight the patient continued to experience uncontrolled pain despite the use of Tylenol and oxycodone. In the ED today the patient remained afebrile and stable. Labs today including CBC, CMP, and UA were without signs of infection or renal disease. The patient was given a 500 mL NSS bolus, a total of 4 mg IV morphine, 1.5 mg IV dilaudid, and 4 mg IV Zofran. The ED staff spoke with Urology who recommended Medicine admission for pain control. At the time of the exam the patient was lying on his left side in no acute distress but is uncomfortable. He states that he has been in severe pain since leaving the ED last night. The Tylenol and oxycodone have not improved his symptoms. He has passed two previous stones earlier this year, the pain from this stone is more severe. He denies recent fever, chills, chest pain, SOB, nausea, vomiting, dysuria, hematuria, increased urinary frequency, diarrhea, melena, and recent trauma. He wishes to be a full code and for his to make medical decisions for him if he cannot make them himself. Please refer to Dr. Britt's attestation for any changes to the treatment plan Allergies Allergy/AdvReac Type Severity Reaction Status Date / Time No Known Allergies Allergy Verified 12/28/22 22:59 Home Medications Medication Instructions Recorded Confirmed Type fluticasone propionate 50 1 - 2 spray intranasal HS PRN 11/13/18 12/29/22 Rx mcg/actuation nasal Congestion #16 grams spray,suspension (Flonase Allergy Relief) multivitamin 1 tab PO QAM #30 tabs 11/13/18 12/29/22 Rx cholecalciferol (vitamin D3) 50 4,000 units PO DAILY 03/06/20 12/29/22 History mcg (2,000 unit) tablet (Vitamin D3) lancets 33 gauge (OneTouch Delica 10/08/20 11/23/22 History Lancets) BiPap Machine #1 ea 03/18/21 11/23/22 Rx Portable Oxygen #1 ea 05/27/21 11/23/22 Rx guaifenesin 600 mg tablet, 600 mg PO BID PRN Congestion 05/27/21 12/29/22 History extended release 12 hr (Mucinex) hydrocolloid dressing 2" X 2" #100 ea 10/21/21 11/23/22 Rx (Aquacel Extra) miscellaneous medical supply #100 ea 10/21/21 11/23/22 Rx levocetirizine 5 mg tablet (Xyzal) 5 mg PO QPM 01/31/22 12/29/22 History BD Ultra-Fine Mini Pen Needle 31 #200 ea 04/12/22 11/23/22 Rx gauge x 3/16" (pen needle, diabetic) glucosamine sulf dipot 2 cap PO DAILY 09/01/22 12/29/22 History chlr,msm,chond 550 mg-C 30 mg-jacques 1 mg capsule (Glucosamine Chondroitin) omega-3 fatty acids 1,000 mg 2,000 mg PO BID 09/01/22 12/29/22 History capsule turmeric 400 mg capsule 400 mg PO BID 09/01/22 12/29/22 History acetaminophen 650 mg 650 mg PO Q8H PRN Pain 09/02/22 12/29/22 History tablet,extended release furosemide 40 mg tablet 40 mg PO DAILY PRN swelling 09/02/22 12/29/22 History alpha lipoic acid 200 mg tablet 200 mg PO DAILY 09/13/22 12/29/22 History meloxicam 15 mg tablet 15 mg PO QAM #30 tabs 10/24/22 12/29/22 Rx Medical Marijuana 0 inhaler inhalation BID PRN Pain 11/03/22 12/29/22 History dicyclomine 10 mg capsule 10 mg PO QID PRN Abdominal Pain 11/08/22 12/29/22 Rx #120 caps blood sugar diagnostic (OneTouch #300 ea 11/21/22 11/23/22 Rx Verio test strips) duloxetine 60 mg capsule,delayed 60 mg PO QAM #90 caps 12/05/22 12/29/22 Rx release sulfasalazine 500 mg 0.5 g PO BID #180 tabs 12/07/22 12/29/22 Rx tablet,delayed release montelukast 10 mg tablet 10 mg PO DAILY #90 tabs 12/14/22 12/29/22 Rx (Singulair) insulin glargine 100 unit/mL (3 40 unit (0.4 mL) subcut BID #15 mL 12/20/22 12/29/22 Rx mL) subcutaneous pen (Lantus Solostar U-100 Insulin) tramadol 50 mg tablet 50 - 100 mg PO Q6H PRN Pain #90 12/22/22 12/29/22 Rx tabs oxycodone 5 mg tablet 5 mg PO Q8H PRN pain #10 tabs 12/28/22 12/29/22 Rx metformin 500 mg tablet,extended 500 mg PO DAILY #90 tabs 12/29/22 12/29/22 Rx release 24 hr vitamin B complex 1 tab PO DAILY 12/29/22 12/29/22 History Past Med/Surg History Medical History Allergic rhinitis Bursitis of left shoulder Deep vein thrombosis hx of, multiple in legs, no blood thinners Degenerative arthritis of knee, bilateral Degenerative disc disease Depression Diabetes mellitus type 2, uncontrolled, without complications Diastolic heart failure Esophageal dysphagia Fibromyalgia GERD (gastroesophageal reflux disease) Hearing deficit History of deep vein thrombophlebitis of lower extremity Hyperhidrosis Hypertriglyceridemia Hypothyroidism IBS (irritable bowel syndrome) Insomnia Lyme disease LILLIAN (obstructive sleep apnea) Osteoarthritis involving multiple joints on both sides of body Rheumatoid arthritis Syncope T2DM (type 2 diabetes mellitus) Trigger thumb, right thumb Venous insufficiency (chronic) (peripheral) Vitamin D deficiency Surgical History History of appendectomy History of cardiac cath "a long time ago", no stents History of colonoscopy History of tooth extraction History of umbilical hernia repair Family History Aunt Family history of diabetes mellitus Sister Family history of diabetes mellitus Hypertension Colorectal cancer Mother No problems noted. Sister Breast cancer Other No family history of adverse response to anesthesia Denies family history of Ovarian cancer Prostate cancer Myocardial infarction Social History Smoking Status: Never smoker Second Hand Exposure: No; Do You Dip or Chew Tobacco: No; Hx Alcohol Use: No Hx Substance Use: Yes Substance Use Type Other:: medical - vape Preferred Language: Croatian Communication Ability: Effective Visual Impairment: Limited Hearing Ability: Normal Cmo & President Required: No Beliefs That Will Affect Care: None marital status: Current Living Situation: Spouse Current Living Situation Comment: Lives with and son current occupational status: retired How many Children do You have: 3 How many Children do You have Comment: children mostly local, family able to assist with care as needed. Feels Safe at Home: Yes Safety Concerns: Feels Safe At This Time Childhood Exposure to Second-Hand Smoke: No Diet: diabetic and low carbohydrate Diet Comment: similar to keto during the past year weight has: remained stable Dental Care, Regularly: Yes Physical Activity Frequency: Other Physical Activity Frequency Comment: Limited due to physical condition. Seatbelt Use: always Sunscreen Use: No Assistive Devices: BiPap, Cane, Denture - Upper and Glasses Physical Exam Physical Exam: Physical Exam: General: In no acute distress, stated age, well-nourished, good hygiene, non- toxic appearing HEENT: Normocephalic, atraumatic, no scleral icterus, pupils around round, symmetrical, and reactive to light, moist mucus membranes, trachea midline, no thyromegaly Chest/Pulm: No respiratory distress, symmetrical chest expansion, clear breath sounds throughout Cardiac: RRR, no murmurs noted Abdomen: Negative for ascites and bruising, normoactive bowel sounds, soft, non-tender to palpation throughout Musculoskeletal: Symmetrical and without signs of acute trauma, upper and lower extremities with full ROM, no atrophy, spasticity, or flaccidity Extremities: Radial, dorsalis pedis, and posterior tibial pulses are intact and symmetrical, chronic lymphedema noted in the BL LE's Skin: Warm, dry, no rashes , lesions, or scars noted Neuro: Alert and oriented to person, place, month, year, and president, no focal defects, no tremors noted Psych: mild distress due to pain Results & Data Results & Data Vital Signs (Past 12 Hours) Vital Signs Temp Pulse Resp BP Pulse Ox O2 Del Method O2 Flow Rate 12/29/22 11:01 64 16 183/103 H 93 2 12/29/22 10:30 62 14 95 Nasal Cannula 2 12/29/22 10:00 54 L 16 167/79 H 87 L Room Air 12/29/22 09:56 54 L 12/29/22 09:55 54 L 24 165/103 H 96 12/29/22 08:33 36 C L 59 L 22 192/90 H 96 Room Air Laboratory Results Abnormal lab results 12/29/22 12/29/22 12/29/22 Range/Units 08:51 08:51 09:30 WBC 12.86 H (4.8-10.8) K/ul Neut # (Auto) 9.62 H (1.40-6.50) K/uL [place] # (Auto) 0.86 H (0.11-0.59) K/uL Glucose 185 H (70-99(Fasting)) mg/dl Urine Ketones 2+ H (Negative) Diagnostic Findings CT SCAN OF THE ABDOMEN AND PELVIS WITHOUT IV CONTRAST CLINICAL HISTORY: Right-sided low back pain. COMPARISON STUDY: Abdominal CT dated 09/01/2022. TECHNIQUE: CT scan of the abdomen and pelvis is performed from the lung bases to the proximal femora. Images are reviewed in the axial, sagittal, and coronal planes. IV contrast was not administered for this examination. A dose lowering technique was utilized adhering to the principles of ALARA. CT DOSE: 1563.68 mGy.cm FINDINGS: Lung bases: The heart is top normal in size and without pericardial effusion. The lung bases are clear noting bibasilar scarring/atelectasis. There is a small hiatal hernia. Liver: The unenhanced liver is enlarged, measuring 26.3 cm in length. The liver demonstrates diffusely diminished attenuation indicating steatosis. Fatty sparing is seen adjacent to the gallbladder fossa.. There is no intrahepatic biliary ductal dilatation. Gallbladder: The gallbladder is distended but otherwise normal as imaged. Spleen: Normal in size and attenuation. Pancreas: The unenhanced pancreas is mildly atrophic and grossly unremarkable. Adrenal glands: Unremarkable. Kidneys: The unenhanced kidneys are normal in size. There is a 4 mm obstructing calculus at the right vesicoureteral junction seen on image #[id number]. This causes moderate right hydroureteronephrosis, with associated right-sided perinephric and periureteric stranding and fluid. No additional right renal calculi are identified. There is a 3 mm nonobstructing left renal calculus. No left ureteral stone is seen and there is no left-sided hydronephrosis. A 1.5 cm exophytic cyst arising from the interpolar right kidney is similar to previous. Abdominal vasculature: The abdominal aorta is normal in course and caliber. Bowel: There is moderate colonic diverticulosis without CT evidence of acute diverticulitis. No bowel obstruction is seen. Mild fecal retention is noted throughout the colon. A hernia in the right lateral pelvis contains nonobstructed small bowel loops. The appendix is not identified and reported surgically absent. Peritoneum: There is no intraperitoneal free air or abdominal ascites. Lymphadenopathy: None. Pelvic viscera: The prostate gland is normal as visualized. The bladder wall is mildly thickened and trabeculated suggesting the sequelae of chronic outlet obstruction. The seminal vesicles are normal as imaged. Skeletal structures: The skeletal structures are osteopenic. There is mild to moderate lumbosacral spondylosis. A hemangioma is noted in the body of L4. No lytic or blastic lesions are seen. IMPRESSION: 1. There is a 4 mm obstructing calculus at the right vesicoureteral junction. This causes moderate right hydroureteronephrosis. 2. An additional small nonobstructing calculus is seen in the left kidney. 3. Hepatomegaly and severe hepatic steatosis. 4. A hernia in the right lateral pelvic wall contains nonobstructed bowel loops. 5. Colonic diverticulosis without CT evidence of acute diverticulitis. 6. Additional findings as above. ECG Additional Comments: No ECG available at the time of the admission, will obtain one on admission Code Status & VTE Plan Code Status Full code VTE Prophylaxis Plan VTE Prophylaxis will be ordered: Yes Supervising Physician Co-Signing Physician Notes Patient seen and examined, chart reviewed, case discussed with Kemal Rosas PA-C and I agree with the assessment and plan as above except as otherwise noted Labs and images reviewed 67-year-old male with a nonobstructive calculus and moderate right hydro who presents back to the emergency department after initial trial of Flomax, fluids, pain control with uncontrolled pain. 4 mm stone. discussed with urology, no plans for or at this time would like him to try to pass stone on his own with Flomax and can admit for inpatient pain control and monitoring. Abdomen is nontender, heart rate is regular. Will admit on pain control, Flomax, fluids. Clears, n.p.o. if progressing to surgical urologic intervention. Agree with management above PG Care Time/CCT Total # of Minutes Spent Total Time Spent with Patient: Total time spent is greater than 50% in coordination of care (as documented) at patient's floor/unit and/or counseling patient: Coding [place] [address] INT INP/OBS CARE 2/55MIN Patient Type Established Medical Decision Making Moderate Complexity Diagnoses Uncontrolled pain R52 Ureterolithiasis N20.1 T2DM (type 2 diabetes mellitus) E11.9 Rheumatoid arthritis M06.9 Diastolic heart failure I50.30 Venous stasis ulcers of both lower extremities I83.019; I83.029; L97.919; L97.929 LILLIAN (obstructive sleep apnea) G47.33
[2022-12-29] MEDS: INSULIN ASPART PER UNIT CHARGE SC SCH ×3 (14:09→20:41)
--- NOTE | 2022-12-29 14:10 | Urology Consultation ---
Date of Consultation December 29, 2022 Assessment & Plan (1) Ureteral obstruction, right: (2) Hydroureteronephrosis: (3) Uncontrolled pain: Plan 67yo/M admitted with intractable right flank pain secondary to an obstructing 4 mm right UVJ stone. Afebrile, hemodynamically stable, non-toxic appearing. Labs show a white count of 12.86 and normal renal function. Urinalysis without signs of infection. We discussed options for acute stone management. We discussed trial of p assage with max expulsion therapy. We discussed stone passage rates given size and location. Also discussed surgical intervention with ureteral stent placement. Ureteral stents were discussed as well as postoperative issues and pain management. He would like to proceed with trial of passage for now. No surgical intervention planned today. Okay to resume diet. Make NPO at [place] to reassess. Recommend hydration, tamsulosin. Strain all urine. Continue supportive care and pain management. will follow. History of Present Illness History of Present Illness 67-year-old male with a past medical history of morbid obesity, dyslipidemia, type 2 diabetes, hypothyroidism, LILLIAN and metabolic syndromewho presented to the ED today with uncontrolled right flank pain. The patient was initially seen yesterday in the ED for similar symptoms. He had a CT abdomen pelvis that showed a 4 mm obstructing stone at the right vesicoureteral junction causing moderate right hydronephrosis. He was discharged home with prn oxycodone. Overnight he continued to experience uncontrolled pain and return to the ED this morning. In the ED, he was afebrile and hemodynamically stable. Labs show a white count of 12.86, hemoglobin 15.5, normal renal function. Urinalysis without signs of infection. Received Dilaudid, morphine, Tylenol, Zofran, Flomax in the ED. Patient was admitted to medicine service for pain control. Patient was examined at bedside in the ED. He was awake and in no acute distress at time of exam. Continues to have right flank pain. He denies fevers, chills, nausea, vomiting. Denies hematuria or dysuria. Voiding without issue. CT abdomen pelvis - 1. There is a 4 mm obstructing calculus at the right vesicoureteral junction. This causes moderate right hydroureteronephrosis. 2. An additional small nonobstructing calculus is seen in the left kidney. 3. Hepatomegaly and severe hepatic steatosis. 4. A hernia in the right lateral pelvic wall contains nonobstructed bowel loops. 5. Colonic diverticulosis without CT evidence of acute diverticulitis. Hx of stones - was hospitalized in August of this year for a left ureteral stone which he spontaneously passed. Allergies Allergy/AdvReac Type Severity Reaction Status Date / Time No Known Allergies Allergy Verified 12/28/22 22:59 Home Medications Medication Instructions Recorded Confirmed Type fluticasone propionate 50 1 - 2 spray intranasal HS PRN 11/13/18 12/29/22 Rx mcg/actuation nasal Congestion #16 grams spray,suspension (Flonase Allergy Relief) multivitamin 1 tab PO QAM #30 tabs 11/13/18 12/29/22 Rx cholecalciferol (vitamin D3) 50 4,000 units PO DAILY 03/06/20 12/29/22 History mcg (2,000 unit) tablet (Vitamin D3) lancets 33 gauge (OneTouch Delica 10/08/20 11/23/22 History Lancets) BiPap Machine #1 ea 03/18/21 11/23/22 Rx Portable Oxygen #1 ea 05/27/21 11/23/22 Rx guaifenesin 600 mg tablet, 600 mg PO BID PRN Congestion 05/27/21 12/29/22 History extended release 12 hr (Mucinex) hydrocolloid dressing 2" X 2" #100 ea 10/21/21 11/23/22 Rx (Aquacel Extra) miscellaneous medical supply #100 ea 10/21/21 11/23/22 Rx levocetirizine 5 mg tablet (Xyzal) 5 mg PO QPM 01/31/22 12/29/22 History BD Ultra-Fine Mini Pen Needle 31 #200 ea 04/12/22 11/23/22 Rx gauge x 3/16" (pen needle, diabetic) glucosamine sulf dipot 2 cap PO DAILY 09/01/22 12/29/22 History chlr,msm,chond 550 mg-C 30 mg-jacques 1 mg capsule (Glucosamine Chondroitin) omega-3 fatty acids 1,000 mg 2,000 mg PO BID 09/01/22 12/29/22 History capsule turmeric 400 mg capsule 400 mg PO BID 09/01/22 12/29/22 History acetaminophen 650 mg 650 mg PO Q8H PRN Pain 09/02/22 12/29/22 History tablet,extended release furosemide 40 mg tablet 40 mg PO DAILY PRN swelling 09/02/22 12/29/22 History alpha lipoic acid 200 mg tablet 200 mg PO DAILY 09/13/22 12/29/22 History meloxicam 15 mg tablet 15 mg PO QAM #30 tabs 10/24/22 12/29/22 Rx Medical Marijuana 0 inhaler inhalation BID PRN Pain 11/03/22 12/29/22 History dicyclomine 10 mg capsule 10 mg PO QID PRN Abdominal Pain 11/08/22 12/29/22 Rx #120 caps blood sugar diagnostic (OneTouch #300 ea 11/21/22 11/23/22 Rx Verio test strips) duloxetine 60 mg capsule,delayed 60 mg PO QAM #90 caps 12/05/22 12/29/22 Rx release sulfasalazine 500 mg 0.5 g PO BID #180 tabs 12/07/22 12/29/22 Rx tablet,delayed release montelukast 10 mg tablet 10 mg PO DAILY #90 tabs 12/14/22 12/29/22 Rx (Singulair) insulin glargine 100 unit/mL (3 40 unit (0.4 mL) subcut BID #15 mL 12/20/22 12/29/22 Rx mL) subcutaneous pen (Lantus Solostar U-100 Insulin) tramadol 50 mg tablet 50 - 100 mg PO Q6H PRN Pain #90 12/22/22 12/29/22 Rx tabs oxycodone 5 mg tablet 5 mg PO Q8H PRN pain #10 tabs 12/28/22 12/29/22 Rx metformin 500 mg tablet,extended 500 mg PO DAILY #90 tabs 12/29/22 12/29/22 Rx release 24 hr vitamin B complex 1 tab PO DAILY 12/29/22 12/29/22 History Patient History Medical History Allergic rhinitis Bursitis of left shoulder Deep vein thrombosis hx of, multiple in legs, no blood thinners Degenerative arthritis of knee, bilateral Degenerative disc disease Depression Diabetes mellitus type 2, uncontrolled, without complications Diastolic heart failure Esophageal dysphagia Fibromyalgia GERD (gastroesophageal reflux disease) Hearing deficit History of deep vein thrombophlebitis of lower extremity Hyperhidrosis Hypertriglyceridemia Hypothyroidism IBS (irritable bowel syndrome) Insomnia Lyme disease LILLIAN (obstructive sleep apnea) Osteoarthritis involving multiple joints on both sides of body Rheumatoid arthritis Syncope T2DM (type 2 diabetes mellitus) Trigger thumb, right thumb Venous insufficiency (chronic) (peripheral) Vitamin D deficiency Surgical History History of appendectomy History of cardiac cath "a long time ago", no stents History of colonoscopy History of tooth extraction History of umbilical hernia repair Family History Aunt Family history of diabetes mellitus Sister Family history of diabetes mellitus Hypertension Colorectal cancer Mother No problems noted. Sister Breast cancer Other No family history of adverse response to anesthesia Denies family history of Ovarian cancer Prostate cancer Myocardial infarction Social History Smoking Status: Never smoker Second Hand Exposure: No; Do You Dip or Chew Tobacco: No; Hx Alcohol Use: No Hx Substance Use: Yes Substance Use Type Other:: medical - vape Preferred Language: Kyrgyz Communication Ability: Effective Visual Impairment: Limited Hearing Ability: Normal Toddler Caregiver Required: No Beliefs That Will Affect Care: None marital status: Current Living Situation: Spouse Current Living Situation Comment: Lives with and son current occupational status: retired How many Children do You have: 3 How many Children do You have Comment: children mostly local, family able to assist with care as needed. Feels Safe at Home: Yes Safety Concerns: Feels Safe At This Time Childhood Exposure to Second-Hand Smoke: No Diet: diabetic and low carbohydrate Diet Comment: similar to keto during the past year weight has: remained stable Dental Care, Regularly: Yes Physical Activity Frequency: Other Physical Activity Frequency Comment: Limited due to physical condition. Seatbelt Use: always Sunscreen Use: No Assistive Devices: BiPap, Cane, Denture - Upper and Glasses Review of Systems Review of Systems: All systems reviewed & are unremarkable except as noted in HPI & below Physical Exam Constitutional: + uncomfortable non-toxic appearing Neck: normal visual inspection Respiratory: normal respiratory effort; no respiratory distress and no labored breathing Musculoskeletal: Head/Neck/Chest: normocephalic Skin: No visible rashes or lesions to exposed skin areas Neurologic: moves all extremities and awake Psychiatric: Orientation: alert, oriented x 3 and cooperative Results & Data Vital Signs (Past 12 Hours) Vital Signs Temp Pulse Resp BP Pulse Ox O2 Del Method O2 Flow Rate 12/29/22 13:37 79 17 183/90 H 94 Nasal Cannula 2 12/29/22 11:01 64 16 183/103 H 93 2 12/29/22 10:30 62 14 95 Nasal Cannula 2 12/29/22 10:00 54 L 16 167/79 H 87 L Room Air 12/29/22 09:56 54 L 12/29/22 09:55 54 L 24 165/103 H 96 12/29/22 08:33 36 C L 59 L 22 192/90 H 96 Room Air PG Care Time/CCT Total # of Minutes Spent Total Time Spent with Patient: Total time spent is greater than 50% in coordination of care (as documented) at patient's floor/unit and/or counseling patient: Coding Level of Care Code 87806 INT INP/OBS CARE 2/55MIN Diagnoses Ureteral obstruction, right N13.5 Hydroureteronephrosis N13.30 Uncontrolled pain R52
[2022-12-29] MEDS: HYDROmorphone INJ 1 MG/ML SYRINGE IV PRN ×3 (14:35→23:40)
[2022-12-29] MEDS: ACETAMINOPHEN 325 MG TAB PO SCH ×2 (14:55→20:29)
[2022-12-29] MEDS: SODIUM CHLORIDE 0.9% 1000ML 1,000 ML IV SCH ×2 (14:55→22:28)
--- NOTE | 2022-12-29 17:05 | Electrocardiogram Report ---
Test Reason : Blood Pressure : / mmHG Vent. Rate : 061 BPM Atrial Rate : 061 BPM P-R Int : 178 ms QRS Dur : 092 ms QT Int : 420 ms P-R-T Axes : 011 072 088 degrees QTc Int : 422 ms Normal sinus rhythm Cannot rule out Inferior infarct , age undetermined Abnormal ECG When compared with ECG of 02-SEP-2022 07:48, No significant change was found Confirmed by Alan Najera ([id number]) on 12/29/2022 5:05:03 PM Referred By: REFERRED SELF Confirmed By:Galdino Najera
[2022-12-29] MEDS: LANTUS PER UNIT CHARGE SQ SCH (20:41)
[2022-12-29] MEDS ORDERED: TAMSULOSIN HCL 0.4 MG CAP PO SCH (21:00)
[2022-12-30] MEDS ORDERED: ONDANSETRON 4 MG OD TAB PO PRN (00:30)
[2022-12-30] MEDS ORDERED: LIDOCAINE 5% 1 PATCH TD STA (00:48)
[2022-12-30] MEDS ORDERED: KETOROLAC TROMETHAMINE 15 MG/ML VIAL IV ONE (00:48)
[2022-12-30] MEDS: ACETAMINOPHEN 325 MG TAB PO SCH ×2 (02:22→08:40)
[2022-12-30] MEDS: SODIUM CHLORIDE 0.9% 1000ML 1,000 ML IV SCH (05:55)
[2022-12-30] MEDS ORDERED: INSULIN ASPART PER UNIT CHARGE SC SCH (06:00)
[2022-12-30 08:29] LABS: Hematocrit (blood only) 41.6 % (42.0-52.0); Hemoglobin 14.2 g/dl (14.0-18.0); Mean Corpuscular Hemoglobin 30.6 pg (25.0-34.0); Mean Corpuscular Hgb Conc 34.1 g/dL (32.0-36.0); Mean Corpuscular Volume 89.7 fL (80.0-100.0); Mean Platelet Volume 9.6 fL (9.4-12.4); Platelet Count 144 K/uL (130-400); RDW Coefficient of Variation 13.6 % (11.5-14.5); RDW Standard Deviation 44.7 fL (36.4-46.3); Red Blood Count 4.64 M/uL (4.70-6.10)
[2022-12-30 08:30] LABS: Calcium 9.2 mg/dl (8.6-10.3); Creatinine Clr Calc Pharmacy 135.7 ml/min; Est GFR (African American) 106.6 ml/min; Potassium 3.7 mmol/L (3.5-5.1)
--- NOTE | 2022-12-30 08:33 | Hospitalist Progress Note ---
Date of Service December 30, 2022 Assessment & Plan (1) Uncontrolled pain: Plan: Admit to med/surge. Currently stable Appears admtted in August w/ stones and passed some on his own w/ trial flomax and zofran but doesnt appear had f/u with Urology after discharge -Patient diagnosed with a 4 mm, non-obstructing calculus located at the right vesicoureteral junction with moderate right hydroureteronephrosis. -Patient has been non-febrile, with improving mild leukocytosis, no urinary symptoms, and clean UA -S/P 4 mg IV morphine and 1.5 mg IV dilaudid in the ED with continued severe pain -Will give hime a dose of PO Flomax STAT to see if the stone can pass into the bladder as it is at the vesicoureteral junction -Will give another 1 mg IV dliaudid now then continue with prn IV dilaudid for severe pain -Will give 1gm IV Acetaminophen now -Spoke with Urology, appreciate their quick response, patient would like to try and pass the stone on his own at this time, they will continue to follow but no urgent OR plans at this time -Continue to monitor fever cure for sings of infection -Hold chemical DVT PPX in case of OR in the near future -Will keep on clears for now in case urgent OR would be needed -Urine strainer ordered to monitor for stone passage -AM CBC and BMP (2) Ureterolithiasis: Plan: -4mm right, non-obstruction stone at the right vesicoureteral junction with moderate right hydroureteronephrosis -No signs of infection, renal function is stable -Will give a dose of PO flomax now then continue qhs until he passes the stone (3) T2DM (type 2 diabetes mellitus): Plan: -Hold metformin -Monitor BSG q4h until eating consistently -Normally takes 40 units Lantus BID, will decreased to 20 units BID for now until he is eating consistently -CF of 50 q4h -Adjust regimen as needed (4) Rheumatoid arthritis: Plan: -Will hold sulfasalazine for now to reduce the risk of infection (5) Diastolic heart failure: Plan: -Appears euvolemic on exam -Uses prn lasix for swelling -Monitor volume status with IV fluids (6) Venous stasis ulcers of both lower extremities: Plan: -At baseline (7) LILLIAN (obstructive sleep apnea): Plan: -HS Bipap with 2L NC ordered Plan The patient was discussed with Dr. Britt at the time of the admission Admission and Anticipated Discharge Date Admission Date: December 29, 2022 Results & Data Results & Data Vital Signs (Past 12 Hours) Vital Signs Temp Pulse Resp BP Pulse Ox O2 Del Method 12/30/22 07:32 37.5 C 77 18 155/92 H 96 Room Air 12/29/22 22:31 Room Air 12/29/22 20:59 37.3 C 79 20 163/82 H 95 Room Air Laboratory Results 12/30/22 12/30/22 12/30/22 Range/Units 07:01 07:01 05:51 WBC 9.10 (4.8-10.8) K/ul RBC 4.64 L (4.70-6.10) M/uL Hgb 14.2 (14.0-18.0) g/dl Hct 41.6 L (42.0-52.0) % MCV 89.7 (80.0-100.0) fL MCH 30.6 (25.0-34.0) pg MCHC 34.1 (32.0-36.0) g/dL RDW Std Deviation 44.7 (36.4-46.3) fL RDW Coeff of Andres 13.6 (11.5-14.5) % Plt Count 144 (130-400) K/uL MPV 9.6 (9.4-12.4) fL Immature Gran % (Auto) % Neut % (Auto) % Lymph % (Auto) % [place] % (Auto) % Eos % (Auto) % Baso % (Auto) % Neut # (Auto) (1.40-6.50) K/uL Lymph # (Auto) (1.2-3.4) K/uL [place] # (Auto) (0.11-0.59) K/uL Eos # (Auto) (0-0.50) K/uL Baso # (Auto) (0-0.2) K/uL Immature Gran # (Auto) (0.01-0.20) K/uL Sodium 138 (136-145) mmol/L Potassium 3.7 (3.5-5.1) mmol/L Chloride 103 (98-107) mmol/L Carbon Dioxide 29 (21-32) mmol/L Anion Gap 6 (3-11) BUN 13 (6-23) mg/dl Creatinine 0.81 (0.6-1.4) mg/dl Est Cr Clr Drug Dosing 135.7 ml/min Est GFR ( Amer) 106.6 ml/min Est GFR (Non-Af Amer) 92.0 ml/min BUN/Creatinine Ratio 16.0 (10-20) Glucose 143 H (70-99(Fasting)) mg/dl POC Glucose 140 H (70-99) mg/dl Calcium 9.2 (8.6-10.3) mg/dl Total Bilirubin (0.2-1.0) mg/dl AST (13-39) U/L ALT (7-52) U/L Alkaline Phosphatase (34-104) U/L Total Protein (6.0-8.3) gm/dl Albumin (3.4-5.0) gm/dl Globulin (2.5-4.0) gm/dl Albumin/Globulin Ratio (0.9-2) Urine Color Urine Appearance (Clear) Urine pH (4.5-7.5) Ur Specific [place] (1.000-1.030) Urine Protein (Negative) Urine Glucose (UA) (Negative) Urine Ketones (Negative) Urine Blood (Negative) Urine Nitrite (Negative) Urine Bilirubin (Negative) Urine Urobilinogen (Negative) Ur Leukocyte Esterase (Negative) 12/30/22 12/29/22 12/29/22 Range/Units 01:12 20:38 16:34 WBC (4.8-10.8) K/ul RBC (4.70-6.10) M/uL Hgb (14.0-18.0) g/dl Hct (42.0-52.0) % MCV (80.0-100.0) fL MCH (25.0-34.0) pg MCHC (32.0-36.0) g/dL RDW Std Deviation (36.4-46.3) fL RDW Coeff of Andres (11.5-14.5) % Plt Count (130-400) K/uL MPV (9.4-12.4) fL Immature Gran % (Auto) % Neut % (Auto) % Lymph % (Auto) % [place] % (Auto) % Eos % (Auto) % Baso % (Auto) % Neut # (Auto) (1.40-6.50) K/uL Lymph # (Auto) (1.2-3.4) K/uL [place] # (Auto) (0.11-0.59) K/uL Eos # (Auto) (0-0.50) K/uL Baso # (Auto) (0-0.2) K/uL Immature Gran # (Auto) (0.01-0.20) K/uL Sodium (136-145) mmol/L Potassium (3.5-5.1) mmol/L Chloride (98-107) mmol/L Carbon Dioxide (21-32) mmol/L Anion Gap (3-11) BUN (6-23) mg/dl Creatinine (0.6-1.4) mg/dl Est Cr Clr Drug Dosing ml/min Est GFR ( Amer) ml/min Est GFR (Non-Af Amer) ml/min BUN/Creatinine Ratio (10-20) Glucose (70-99(Fasting)) mg/dl POC Glucose 173 H 149 H 132 H (70-99) mg/dl Calcium (8.6-10.3) mg/dl Total Bilirubin (0.2-1.0) mg/dl AST (13-39) U/L ALT (7-52) U/L Alkaline Phosphatase (34-104) U/L Total Protein (6.0-8.3) gm/dl Albumin (3.4-5.0) gm/dl Globulin (2.5-4.0) gm/dl Albumin/Globulin Ratio (0.9-2) Urine Color Urine Appearance (Clear) Urine pH (4.5-7.5) Ur Specific [place] (1.000-1.030) Urine Protein (Negative) Urine Glucose (UA) (Negative) Urine Ketones (Negative) Urine Blood (Negative) Urine Nitrite (Negative) Urine Bilirubin (Negative) Urine Urobilinogen (Negative) Ur Leukocyte Esterase (Negative) 12/29/22 12/29/22 12/29/22 Range/Units 09:30 08:51 08:51 WBC 12.86 H (4.8-10.8) K/ul RBC 5.02 (4.70-6.10) M/uL Hgb 15.5 (14.0-18.0) g/dl Hct 44.0 (42.0-52.0) % MCV 87.6 (80.0-100.0) fL MCH 30.9 (25.0-34.0) pg MCHC 35.2 (32.0-36.0) g/dL RDW Std Deviation 43.2 (36.4-46.3) fL RDW Coeff of Andres 13.5 (11.5-14.5) % Plt Count 171 (130-400) K/uL MPV 9.5 (9.4-12.4) fL Immature Gran % (Auto) 0.3 % Neut % (Auto) 74.8 % Lymph % (Auto) 17.6 % [place] % (Auto) 6.7 % Eos % (Auto) 0.2 % Baso % (Auto) 0.4 % Neut # (Auto) 9.62 H (1.40-6.50) K/uL Lymph # (Auto) 2.26 (1.2-3.4) K/uL [place] # (Auto) 0.86 H (0.11-0.59) K/uL Eos # (Auto) 0.03 (0-0.50) K/uL Baso # (Auto) 0.05 (0-0.2) K/uL Immature Gran # (Auto) 0.04 (0.01-0.20) K/uL Sodium 137 (136-145) mmol/L Potassium 3.5 (3.5-5.1) mmol/L Chloride 102 (98-107) mmol/L Carbon Dioxide 25 (21-32) mmol/L Anion Gap 10 (3-11) BUN 14 (6-23) mg/dl Creatinine 0.90 (0.6-1.4) mg/dl Est Cr Clr Drug Dosing 122.1 ml/min Est GFR ( Amer) 102.1 ml/min Est GFR (Non-Af Amer) 88.1 ml/min BUN/Creatinine Ratio 15.6 (10-20) Glucose 185 H (70-99(Fasting)) mg/dl POC Glucose (70-99) mg/dl Calcium 9.5 (8.6-10.3) mg/dl Total Bilirubin 0.8 (0.2-1.0) mg/dl AST 36 (13-39) U/L ALT 37 (7-52) U/L Alkaline Phosphatase 43 (34-104) U/L Total Protein 7.9 (6.0-8.3) gm/dl Albumin 4.2 (3.4-5.0) gm/dl Globulin 3.7 (2.5-4.0) gm/dl Albumin/Globulin Ratio 1.1 (0.9-2) Urine Color Yellow Urine Appearance Clear (Clear) Urine pH 7.0 (4.5-7.5) Ur Specific [place] 1.012 (1.000-1.030) Urine Protein Negative (Negative) Urine Glucose (UA) Negative (Negative) Urine Ketones 2+ H (Negative) Urine Blood Negative (Negative) Urine Nitrite Negative (Negative) Urine Bilirubin Negative (Negative) Urine Urobilinogen Negative (Negative) Ur Leukocyte Esterase Negative (Negative) PG Care Time/CCT Total # of Minutes Spent Total Time Spent with Patient: Total time spent is greater than 50% in coordination of care (as documented) at patient's floor/unit and/or counseling patient: Coding Diagnoses Uncontrolled pain R52 Ureterolithiasis N20.1 T2DM (type 2 diabetes mellitus) E11.9 Rheumatoid arthritis M06.9 Diastolic heart failure I50.30 Venous stasis ulcers of both lower extremities I83.019; I83.029; L97.919; L97.929 LILLIAN (obstructive sleep apnea) G47.33
[2022-12-30] MEDS: LANTUS PER UNIT CHARGE SQ SCH (08:40)
[2022-12-30] MEDS ORDERED: DULoxetine HCL 60 MG CAP PO SCH (09:00)
--- NOTE | 2022-12-30 09:52 | Discharge Summary ---
Date of Service December 30, 2022 Admission HPI Per Admitting Provider Alonso is a 67 yo M with a pmhx of DMT2, RA, fibromyalgia, HFpEF and LILLIAN who presented to the [facility] ED on 12/29 with uncontrolled right flank pain. The patient was seen in the [facility] ED yesterday for the same symptoms. Labs were unremarkable and CT of the abd/pelvis wo con showed 1. There is a 4 mm obstructing calculus at the right vesicoureteral junction. This causes moderate right hydroureteronephrosis. 2. An additional small nonobstructing calculus is seen in the left kidney. 3. Hepatomegaly and severe hepatic steatosis. 4. A hernia in the right lateral pelvic wall contains nonobstructed bowel loops. 5. Colonic diverticulosis without CT evidence of acute diverticulitis.. The patient was discharged home with prn oxycodone for pain control. Overnight the patient continued to experience uncontrolled pain despite the use of Tylenol and oxycodone. In the ED today the patient remained afebrile and stable. Labs today including CBC, CMP, and UA were without signs of infection or renal disease. The patient was given a 500 mL NSS bolus, a total of 4 mg IV morphine, 1.5 mg IV dilaudid, and 4 mg IV Zofran. The ED staff spoke with Urology who recommended Medicine admission for pain control. At the time of the exam the patient was lying on his left side in no acute distress but is uncomfortable. He states that he has been in severe pain since leaving the ED last night. The Tylenol and oxycodone have not improved his symptoms. He has passed two previous stones earlier this year, the pain from this stone is more severe. He denies recent fever, chills, chest pain, SOB, nausea, vomiting, dysuria, hematuria, increased urinary frequency, diarrhea, melena, and recent trauma. He wishes to be a full code and for his to make medical decisions for him if he cannot make them himself. Please refer to Dr. Britt's attestation for any changes to the treatment plan Admission Exam Per Admitting Provider Physical Exam: General: In no acute distress, stated age, well-nourished, good hygiene, non- toxic appearing HEENT: Normocephalic, atraumatic, no scleral icterus, pupils around round, symmetrical, and reactive to light, moist mucus membranes, trachea midline, no thyromegaly Chest/Pulm: No respiratory distress, symmetrical chest expansion, clear breath sounds throughout Cardiac: RRR, no murmurs noted Abdomen: Negative for ascites and bruising, normoactive bowel sounds, soft, non-tender to palpation throughout Musculoskeletal: Symmetrical and without signs of acute trauma, upper and lower extremities with full ROM, no atrophy, spasticity, or flaccidity Extremities: Radial, dorsalis pedis, and posterior tibial pulses are intact and symmetrical, chronic lymphedema noted in the BL LE's Skin: Warm, dry, no rashes , lesions, or scars noted Neuro: Alert and oriented to person, place, month, year, and president, no focal defects, no tremors noted Psych: mild distress due to pain Principal Diagnosis Kidney stone w/ hydro Discharge Exam Physical Exam: General: WD/WN obese male resting in bed, CPAP in place HEENT: head normocephalic, atraumatic., mmm, trachea midline Resp: CTA, no w/c/r, on room air CV: RRR, no significant m/r/g GI: +BS, soft/NT : no CVA tenderness, no garcia MSK/Neuro: no focal deficit, following commands, answering questions appropriately Psych: AOX3, cooperative with exam Discharge Data Allergies Allergy/AdvReac Type Severity Reaction Status Date / Time No Known Allergies Allergy Verified 12/28/22 22:59 Consultations 12/29/22 12:17 ED Decision to Admit Stat 12/29/22 13:10 Consult Urology Routine Hospital Course (1) Uncontrolled pain: Admit to med/surge. Currently stable Appears admitted in August w/ stones and passed some on his own w/ trial flomax and zofran but doesnt appear had f/u with Urology after discharge In ER earlier w/ imaging showing 4 mm obstructing calculus at the right vesicoureteral junction. This causes moderate right hydroureteronephrosis. UA not appearing infected Given pain control/IVF Urology consulted, placed on flomax AM 12/30, patient requesting discharge. No further pain. Discussed w/ urology, stone may have passed and felt stable from Urology standpoint for dc on Flomax and they will arrange outpatient follow up. Encouraged limiting caffeine/tea intake (he used to be heavy tea drinker), encourage lemonade as he is. Tolerated diet without issue and discharged home on flomax Strain urine for passage Discussed warning signs/fever/chills/etc to return to ER. Demonstrated understanding and discharged home. (2) Ureterolithiasis: 4mm right, non-obstruction stone at the right vesicoureteral junction with moderate right hydroureteronephrosis No signs of infection, renal function is stable on repeat as well Flomax initiated, stone possibly moved as above to bladder, no longer having pain Continue flomax as above, urology to arrange follow up (3) T2DM (type 2 diabetes mellitus): Held home meds while inpatient and utilized insulin, BSGs acceptable and can resume home meds at discharge (4) Rheumatoid arthritis: On sulfasalazine, can resume at dc (5) Diastolic heart failure: No evidence of volume overload. Diet advanced and tolerating, IVF discontinued PRn lasix at home (6) Venous stasis ulcers of both lower extremities: At baseline (7) LILLIAN (obstructive sleep apnea): HS Bipap with 2L NC ordered Plan discharged home on flomax, follow up with Urology recommended Total Time Total Time Spent Total Time Spent (In Minutes): 35 Discharge Plan Discharge Items Patient Disposition: Home - Self-Care Reason For Visit: UNCONTROLLED PAIN FROM RIGHT NEPHROLITHIASIS Discharge Diagnosis: Kidney Stone Condition on Discharge: Good Goals: You have been hospitalized for an acute medical problem. During your stay at [facility], we have made an effort to correct the problem that brought you to the hospital while keeping you as comfortable as possible. Medications were used to bring your condition under control and your discharge instructions will include directions for any medications you should take after leaving the hospital. Please make sure you see your Primary Care Provider as part of your follow up plan. Activity: Resume your previous activity Non-emergency contact: Primary Care Provider and Urologist Call non-emergency contact if: you have any medication questions Follow-up/Referrals: Jaymie Rutherford DO [Primary Care Provider] - 01/12/23 9:20 am Niall Perales MD [Physician] - (Office will call patient with an appointment date and time) Diet: Carb Consistent or DM2 and Heart Healthy Addtl Attending Provider Instructions: You have been hospitalized for uncontrolled pain from a kidney stone. You were provided IV fluids, pain control and Flomax and possibly stone moved to the bladder. Urology was consulted and your urine did not appear to be infected. You will be having follow up with Urology at discharge given recurrence of stones and further management. You will continue Flomax daily to help pass the stone. Please follow up with primary care in the next 7-10 days after discharge. Please follow up with Urology -- they will call to make this appointment. If you do not hear from them, please call the office [phone]. Please return to the ER with any more uncontrolled pain, if you have a fever, if you are unable to tolerate oral intake, or for any other symptoms concerning for you. It has been a pleasure being a part of the medical team providing for you while you have been in the hospital. Take care! Pending Studies at Discharge: No Stand-Alone Forms: My [facility] [employer], Smoking Cessation Medications and DC Order Prescriptions: New tamsulosin 0.4 mg Capsule 0.4 mg PO HS Qty: 30 0RF Continued (DME) BiPap Machine Misc See Rx Instructions .Route Qty: 1 0RF Rx Instructions: BiPAP 14/6, biflex2; oxygen 2L/min (DME) miscellaneous medical supply Pad See Rx Instructions .Route Qty: 100 1RF Rx Instructions: As directed Cosmopor sterile adhesive dressing (DME) Aquacel Extra 2 X 2 " bandage See Rx Instructions .Route Qty: 100 1RF Rx Instructions: As directed meloxicam 15 mg tablet 15 mg PO QAM Qty: 30 5RF dicyclomine 10 mg capsule 10 mg PO QID PRN (Reason: Abdominal Pain) Qty: 120 1RF (DME) OneTouch Verio test strips Strip See Rx Instructions .ROUTE .MEDSUPPLY Qty: 300 1RF Rx Instructions: test blood sugar TID duloxetine 60 mg capsule,delayed release(DR/EC) 60 mg PO QAM Qty: 90 1RF sulfasalazine 500 mg tablet,delayed release (DR/EC) 0.5 g PO BID Qty: 180 1RF montelukast [Singulair] 10 mg tablet 10 mg PO DAILY Qty: 90 3RF insulin glargine [Lantus Solostar U-100 Insulin] 100 unit/mL (3 mL) insulin pen 40 unit subcut BID Qty: 15 5RF tramadol 50 mg tablet 50 - 100 mg PO Q6H PRN (Reason: Pain) Qty: 90 0RF metformin 500 mg tablet extended release 24 hr 500 mg PO DAILY Qty: 90 1RF fluticasone propionate [Flonase Allergy Relief] 50 mcg/actuation spray,suspension 1 - 2 spray INTRANASAL HS PRN (Reason: Congestion) Qty: 16 5RF multivitamin tablet 1 tab PO QAM Qty: 30 5RF guaifenesin [Mucinex] 600 mg tablet extended release 12hr 600 mg PO BID PRN (Reason: Congestion) (DME) Portable Oxygen Misc See Rx Instructions .ROUTE .MEDSUPPLY Qty: 1 0RF Rx Instructions: 2L NC w/ activity cholecalciferol (vitamin D3) [Vitamin D3] 50 mcg (2,000 unit) tablet 4,000 units PO DAILY Rx Instructions: gummies (DME) lancets [OneTouch Delica Lancets] 33 gauge misc See Rx Instructions .ROUTE .MEDSUPPLY Dose Instruction: As directed Rx Instructions: Testing three times daily. levocetirizine [Xyzal] 5 mg tablet 5 mg PO QPM Medical Marijuana 0 inhaler inhalation BID PRN (Reason: Pain) acetaminophen 650 mg Tablet Extended Release 650 mg PO Q8H PRN (Reason: Pain) furosemide 40 mg tablet 40 mg PO DAILY PRN (Reason: swelling) vitamin B complex Tablet 1 tab PO DAILY omega-3 fatty acids 1,000 mg Capsule 2,000 mg PO BID turmeric 400 mg Capsule 400 mg PO BID Glucosamine Chondroitin 550-30-1 mg Capsule 2 cap PO DAILY alpha lipoic acid 200 mg tablet 200 mg PO DAILY Rx Instructions: UNSURE OF STRENGTH oxycodone 5 mg tablet 5 mg PO Q8H PRN (Reason: pain) Qty: 10 0RF No Action (DME) pen needle, diabetic [BD Ultra-Fine Mini Pen Needle] 31 gauge x 3/16" needle See Dose Instructions .ROUTE .MEDSUPPLY Qty: 200 3RF Dose Instruction: As directed Rx Instructions: inject with insulin 2 times daily Discharge Orders: Discharge Order (Routine); Ordered 12/30/22 Ordered By: Shobha Bardales/Other Patient Handouts: Preventing Deep Vein Thrombosis Admission Data Admit Date/Time: 12/29/22 12:57 Attending Provider: Joss Kim Admit Provider: Ford Britt Primary Care Provider: Jaymie Rutherford Other Providers: Niall Perales ; Ford Britt Other Interventions: Discharge Summary Assessment (RN) Last Done: 12/30/22 11:14 Supervising Physician Co-Signing Physician Notes The patient was not seen by me. The chart was reviewed. Case discussed with PAOLO Lovett. Agree with assessment and plan Coding Level of Care Code 65591 INP/OBS DISCH >30 MIN Diagnoses Uncontrolled pain R52 Ureterolithiasis N20.1 T2DM (type 2 diabetes mellitus) E11.9 Rheumatoid arthritis M06.9 Diastolic heart failure I50.30 Venous stasis ulcers of both lower extremities I83.019; I83.029; L97.919; L97.929 LILLIAN (obstructive sleep apnea) G47.33
--- NOTE | 2022-12-30 11:32 | Urology Progress Note ---
Date of Service December 30, 2022 Assessment & Plan (1) Ureteral obstruction, right: (2) Hydroureteronephrosis: (3) Uncontrolled pain: Plan 67yo/M admitted with intractable right flank pain secondary to an obstructing 4 mm right UVJ stone. Feeling much better this morning, pain has resolved. He feels the stone may have moved into the bladder, no noticeable passage with voiding yet. Remains afebrile and hemodynamically stable. Labs show no leukocytosis and normal renal function. Urinalysis without signs of infection. He is currently asymptomatic and is eager to go home which is reasonable. He will continue to monitor for stone passage. Ok for discharge from perspective. Reviewed in detail signs/symptoms that would warrant return to the hospital, patient verbalized an understanding. Recommend he continue with hydration and straining all urine. Continue tamsulosin. Will arrange follow-up outpatient with Urology service. Patient agreeable to above plan. Urology to sign off. Please contact us with any further questions or concerns. Admission and Anticipated Discharge Date Admission Date: December 29, 2022 Subjective Patient examined at bedside this a.m. Awake, sitting up in bed on arrival. No acute distress. He had some pain overnight but so far no complaints of pain this morning. Overall reports he is feeling much better. Thinks his stone may have passed into the bladder. No noticeable passage with voiding. Denies fevers, chills, nausea, vomiting. Voiding without issue. Denies hematuria or dysuria. Review of Systems Constitutional: as per Subjective / HPI Gastrointestinal: as per Subjective / HPI Genitourinary: + as per Subjective / HPI Physical Exam Constitutional: well developed and well nourished; no acute distress Respiratory: no respiratory distress and no labored breathing Skin: No visible rashes or lesions to exposed skin areas Neurologic: moves all extremities and awake Psychiatric: A+Ox3, euthymic affect Genitourinary: no CVA tenderness Results & Data Vital Signs (Past 12 Hours) Vital Signs Temp Pulse Resp BP Pulse Ox O2 Del Method 12/30/22 07:32 37.5 C 77 18 155/92 H 96 Room Air 12/29/22 22:31 Room Air 12/29/22 20:59 37.3 C 79 20 163/82 H 95 Room Air PG Care Time/CCT Total # of Minutes Spent Total Time Spent with Patient: Total time spent is greater than 50% in coordination of care (as documented) at patient's floor/unit and/or counseling patient: Coding Level of Care Code 71951 SUB INP/OBS CARE 2/35MIN Diagnoses Ureteral obstruction, right N13.5 Hydroureteronephrosis N13.30 Uncontrolled pain R52
== END 2022-12-30 12:07 | disposition home or self-care (01) | DRG 694 ==
LOC: ED 08:20 → 3N 12:57 → SUATTDRO 12:57 → 3N 13:42